=== PATIENT | male | born 1985 | race Caucasian/White ===

== ENCOUNTER 2020-01-20 06:35 | Emergency (ER) | payer OTHER, SELFPAY ==
[2020-01-20 06:41] VITALS: BP 119/78; PULSE 106; RESP 18; TEMP 35.7; O2SAT 99; BMI 27.2
--- NOTE | 2020-01-20 06:58 | ECG_ITS ---
Test Reason : ETOH Blood Pressure : / mmHG Vent. Rate : 081 BPM Atrial Rate : 081 BPM P-R Int : 146 ms QRS Dur : 100 ms QT Int : 404 ms P-R-T Axes : 056 046 025 degrees QTc Int : 469 ms Normal sinus rhythm Normal ECG When compared with ECG of 06-AUG-2019 06:13, T wave amplitude has decreased in Lateral leads Referred By: Sarah Haywood Electronically Signed By:GABY GUTIERREZ
--- NOTE | 2020-01-20 06:59 | ED_ITS ---
HPI - Alcohol General Chief Complaint: ETOH/Substance Use Stated Complaint: vomiting Time Seen by Provider: 01/20/20 06:57 Source: patient Mode of arrival: ambulatory Limitations: other (vague historian, somewhat difficult to interview ) History of Present Illness HPI narrative: chronic ETOH, drank heavily last drink 40 minutes ago reports he has had palpitations and vomiting for 6 hours, went to detox 1 month ago not sure he wants to go back complaint: alcohol intoxication Last drink: Just prior to admission Chronic alcohol use: Yes Previous visits for alcohol intoxication: Yes Recent trauma: No Associated symptoms: nausea and vomiting Treatments prior to arrival: none Related Data Previous Rx's Medication Instructions Recorded chlordiazepoxide HCl 25 mg PO Q8H PRN #14 cap 01/20/20 ondansetron 4 mg PO Q8H PRN #20 tab 01/20/20 Allergies Allergy/AdvReac Type Severity Reaction Status Date / Time erythromycin base Allergy Mild INFLAMMATIO Verified 01/20/20 07:26 [From ERYTHROCIN] N Certain Abx eye drops AdvReac Unknown Eye Uncoded 10/25/19 00:00 swelling/closing Review of Systems Review of Systems: Constitutional : No Fever, No Chills ENT/Mouth : No sore throat, No Rhinorrhea Eyes: No Eye Pain, No Swelling, No Redness Cardiovascular : No Chest Pain, No SOB, + heart racing Respiratory : No Cough, No Sputum Gastrointestinal : + Nausea, + Vomiting, No Diarrhea, No abdominal Pain Genitourinary : No Dysuria, No Hematuria Musculoskeletal : No joint pain, No Myalgias, No Joint Swelling Skin : No Skin Lesions, No rash Neuro : No Weakness, No Numbness Psych : No Anxiety, No Depression, No SI/HI/AH/VH Heme/Lymph: No Bruising, No Bleeding Endocrine : No Polyuria, No Polydipsia All other systems reviewed and are negative [facility] Past Medical History Medical History (Updated 01/20/20 @ 10:17 by Sarah Haywood DO) AA (alcohol abuse) Cirrhosis Pancreatitis Social History Social History (Updated 01/20/20 @ 06:59 by Sarah Haywood DO) Alcohol intake: current Alcohol intake frequency: 3 or more drinks per day Alcohol type: hard liquor Smoking Status: Current some day smoker Smoked in Last 30 Days: Yes Use of substances other than those prescribed or required for medical reasons: No Advance Directives: No Advance Directives Information Provided: No Physical Exam Vital Signs and I&O and Narrative: Vital Signs and I&O: Vital Signs Temp 96.2 F L 01/20/20 06:41 Pulse 101 H 01/20/20 09:21 Resp 20 01/20/20 09:21 BP 116/65 01/20/20 09:21 Pulse Ox 95 01/20/20 09:21 Intake & Output 01/19/20 01/20/20 01/20/20 18:59 06:59 18:59 Intake Total 1000 / 1000 Balance 1000 / 1000 Weight 86.183 kg Intake: Intake, IV Amoun t 1000 / 1000 0.9 % Sodium C hloride 1,000 ml 1000 / 1000 @ 999 mls/hr I VCONT .Q1H1M HUY Rx#:[id number] Body Mass Index 27.2 Appearance: Alert. Oriented X3. No acute distress. Flat affect Eyes: Pupils equal, round and reactive to light. ENT: Pharynx dry MM Neck: Normal inspection. Neck supple. CVS: tachycardic regular Pulses normal. Respiratory: No respiratory distress. Breath sounds normal. Abdomen: Soft and nontender. Skin: Skin warm and dry. Normal skin color. Normal skin turgor. Extremities: No lower extremity edema. No lower extremity edema. Neuro: Oriented X 3. No motor deficit. No sensory deficit. Course Reevaluation(s) Reevaluation #1: call to [facility] the patient states he will only go there for detox otherwise refuses, no answer when I called will ask SWAT for help Reevaluation #2: care team involved will follow up with patient he is able to tolerate PO steady gait, clinically sober, plan is to follow up rehab at home MDM - Alcohol MDM Narrative Medical decision making narrative: patient here with hx of heavy ETOH abuse here c/o palpitations n/v and unsure he wants detox, benign exam will need labs, IVF, reglan benadryl, IV pepcid - dispo per results and workup Lab Data Result diagrams: 01/20/20 07:07 01/20/20 07:07 Labs: Lab Results 01/20/20 01/20/20 01/20/20 Range/Units 07:07 07:07 07:07 WBC 5.6 (4.8-10.8) X10*3/uL RBC 4.40 L (4.60-5.80) X10*6/uL Hgb 14.9 (14.0-18.0) g/dl Hct 43.6 (42-52) % MCV 99.1 H (80-98) fL MCH 33.9 H (27.0-33.0) pg MCHC 34.2 (31.0-36.0) g/dl RDW 13.4 (11.0-16.0) % Plt Count 245 (160-400) X10*3/uL MPV 8.7 L (9.4-12.4) fL Immature Gran % (Auto) 0.2 (0.0-0.4) % Neut % (Auto) 57.0 (45-73) % Lymph % (Auto) 36.3 (20-40) % Perkins % (Auto) 4.6 (2-11) % Eos % (Auto) 0.5 (0-4) % Baso % (Auto) 1.4 (0-2) % Neut # (Auto) 3.2 (2.0-8.3) X10*3/uL Lymph # (Auto) 2.1 (1.2-4.9) X10*3/uL Perkins # (Auto) 0.3 (0.1-1.2) X10*3/uL Eos # (Auto) 0.0 (0.0-0.4) X10*3/uL Baso # (Auto) 0.1 (0.0-0.2) X10*3/uL Abs Immat Gran (auto) 0.01 (0.00-0.03) X10*3/uL Absolute Nucleated RBC 0.000 (0.0-0.012) X10*3/uL Nucleated RBC % (auto) 0.0 (0.0-0.2) /100WBC Hold Blue Top SEE NOTE Sodium 141 (135-145) mmol/L Potassium 3.5 (3.3-5.1) mmol/l Chloride 93 L (96-108) mmol/L Carbon Dioxide 20 L (22-29) mmol/L Anion Gap 32 H (12-20) BUN 13 (9-16) mg/dL Creatinine 0.91 (0.5-1.4) mg/dL Estim Creat Clear Calc 115.8 Estimated GFR > 60 Random Glucose 71 (60-115) mg/dL Calcium 10.1 (8.4-10.2) mg/dL Magnesium 1.7 (1.6-2.6) mg/dL Total Bilirubin 0.8 (0.0-1.0) mg/dL Direct Bilirubin 0.5 (0.0-0.5) mg/dL AST 154 H (5-37) U/L ALT 78 H (0-40) U/L Alkaline Phosphatase 83 (39-117) U/L Total Protein 8.6 H (6.5-8.0) g/dL Albumin 5.0 (3.5-5.0) g/dL Lipase 74 (8-78) U/L Ethyl Alcohol mg/dL 01/20/20 Range/Units 07:11 WBC (4.8-10.8) X10*3/uL RBC (4.60-5.80) X10*6/uL Hgb (14.0-18.0) g/dl Hct (42-52) % MCV (80-98) fL MCH (27.0-33.0) pg MCHC (31.0-36.0) g/dl RDW (11.0-16.0) % Plt Count (160-400) X10*3/uL MPV (9.4-12.4) fL Immature Gran % (Auto) (0.0-0.4) % Neut % (Auto) (45-73) % Lymph % (Auto) (20-40) % Perkins % (Auto) (2-11) % Eos % (Auto) (0-4) % Baso % (Auto) (0-2) % Neut # (Auto) (2.0-8.3) X10*3/uL Lymph # (Auto) (1.2-4.9) X10*3/uL Perkins # (Auto) (0.1-1.2) X10*3/uL Eos # (Auto) (0.0-0.4) X10*3/uL Baso # (Auto) (0.0-0.2) X10*3/uL Abs Immat Gran (auto) (0.00-0.03) X10*3/uL Absolute Nucleated RBC (0.0-0.012) X10*3/uL Nucleated RBC % (auto) (0.0-0.2) /100WBC Hold Blue Top Sodium (135-145) mmol/L Potassium (3.3-5.1) mmol/l Chloride (96-108) mmol/L Carbon Dioxide (22-29) mmol/L Anion Gap (12-20) BUN (9-16) mg/dL Creatinine (0.5-1.4) mg/dL Estim Creat Clear Calc Estimated GFR Random Glucose (60-115) mg/dL Calcium (8.4-10.2) mg/dL Magnesium (1.6-2.6) mg/dL Total Bilirubin (0.0-1.0) mg/dL Direct Bilirubin (0.0-0.5) mg/dL AST (5-37) U/L ALT (0-40) U/L Alkaline Phosphatase (39-117) U/L Total Protein (6.5-8.0) g/dL Albumin (3.5-5.0) g/dL Lipase (8-78) U/L Ethyl Alcohol 353 H* mg/dL ECG Data ECG interpretation date: 01/20/20 ECG interpretation time: 07:51 Interpretation: Rate: 81 Rhythm: NSR [place]: normal Normal P waves. Normal DUANE. Normal QRS complex. ST T wave : normal qTC:normal no acute ischemia The study has been interpreted contemporaneously by me. . Discharge Plan Discharge Clinical Impression: Alcoholic intoxication Patient Disposition: Home, Self-Care Instructions: Abuse of Alcohol (ED) Additional Instructions: please continue to follow up with detox centers Prescriptions: New ondansetron 4 mg tablet,disintegrating 4 mg PO Q8H PRN (Reason: nausea and vomiting) Qty: 20 RF: 0 chlordiazepoxide HCl 25 mg capsule 25 mg PO Q8H PRN (Reason: alcohol withdrawal) Qty: 14 RF: 0 Referrals: [facility] [Outside] - 1 day
[2020-01-20 07:16] VITALS: PULSE 100
[2020-01-20 07:17] LABS: MANUAL DIFF FLAG NO
[2020-01-20 07:20] LABS: Basophils Absolute Auto 0.1 X10*3/uL (0.0-0.2); Basophils Percent Auto 1.4 % (0-2); Eosinophils Percent Auto 0.5 % (0-4); Hematocrit 43.6 % (42-52); Hemoglobin 14.9 g/dl (14.0-18.0); Imm Gran Abs Auto 0.01 X10*3/uL (0.00-0.03); Imm Gran Pct Auto 0.2 % (0.0-0.4); Lymphocytes Absolute Auto 2.1 X10*3/uL (1.2-4.9); Lymphocytes Percent Auto 36.3 % (20-40); Mean Corpuscular HGB Conc 34.2 g/dl (31.0-36.0); Mean Corpuscular Hemoglobin 33.9 pg (27.0-33.0); Mean Corpuscular Volume 99.1 fL (80-98); Mean Platelet Volume 8.7 fL (9.4-12.4); Monocytes Absolute Auto 0.3 X10*3/uL (0.1-1.2); Monocytes Percent Auto 4.6 % (2-11); Neutrophils Absolute Auto 3.2 X10*3/uL (2.0-8.3); Platelet Count 245 X10*3/uL (160-400); Red Cell Distribution Width 13.4 % (11.0-16.0); White Blood Count 5.6 X10*3/uL (4.8-10.8)
[2020-01-20] MEDS: Famotidine/PF 20 MG/2 ML VIAL IVPUSH (07:32)
[2020-01-20] MEDS: Metoclopramide HCl 10 MG/2 ML VIAL IVPUSH (07:32)
[2020-01-20] MEDS: diphenhydrAMINE HCL 50 MG/ML VIAL 25 MG IVPUSH (07:32)
[2020-01-20] MEDS: 0.9 % Sodium Chloride 1,000 ML 999 ML IVCONT (07:33)
[2020-01-20 07:56] LABS: Alanine Aminotransferase 78 U/L (0-40); Alkaline Phosphatase 83 U/L (39-117); Bilirubin Direct 0.5 mg/dL (0.0-0.5); Bilirubin Total 0.8 mg/dL (0.0-1.0); Blood Urea Nitrogen 13 mg/dL (9-16); Calcium 10.1 mg/dL (8.4-10.2); Creatinine Clr Calc Pharmacy 115.8; Estimated Glomerular Filt Rate > 60; Glucose Random 71 mg/dL (60-115); Lipase 74 U/L (8-78); Magnesium 1.7 mg/dL (1.6-2.6); Total Protein 8.6 g/dL (6.5-8.0)
[2020-01-20 08:05] LABS: Ethanol 353 mg/dL
[2020-01-20 08:12] LABS: Anion Gap 32 (12-20); Aspartate Amino Transferase 154 U/L (5-37); Carbon Dioxide 20 mmol/L (22-29); Chloride 93 mmol/L (96-108); Potassium 3.5 mmol/l (3.3-5.1); Sodium 141 mmol/L (135-145)
[2020-01-20 09:21] VITALS: BP 116/65; PULSE 101; RESP 20; O2SAT 95
--- NOTE | 2020-01-20 09:24 | PC.NURSE ---
Pt interested in detox if he can get into Prov. Awaiting Care Team consult.
[2020-01-20] MEDS: Acetaminophen 325 MG TABLET 650 MG PO (09:31)
[2020-01-20] MEDS: chlordiazePOXIDE HCl 25 MG CAPSULE 50 MG PO (09:41)
--- NOTE | 2020-01-20 09:54 | PC.NURSE ---
Care Team here to see pt.
--- NOTE | 2020-01-20 10:06 | MHC.CARE ---
CARE Team met with Pt to discuss detox placement. Pt has a preference for [facility]. Per [facility] no current beds. [facility] reports there waiting room is full. Pt made aware that there are no current beds available locally. Pt reports willing to go to [facility].
--- NOTE | 2020-01-20 10:46 | MHC.CARE ---
CARE Team and Pt discussed following up with detox placements at home as t/w could not secure a placment . Pt aware he was referred to [facility] and [facility] at this time and declines being referred farther away. Pt provided contact numbers and verbalized understanding. Pt provided information for [facility] and gave t/w verbal permission to provide [facility] to follow up with him post discharge.
== END 2020-01-20 11:24 | disposition home or self-care (01) ==
PROVIDERS: Emergency Provider Emergency Medicine; PCP Nurse Practitioner Family
DX: F10.120 Alcohol abuse with intoxication, uncomplicated (principal); Y90.8 Blood alcohol level of 240 mg/100 ml or more; F17.200 Nicotine dependence, unspecified, uncomplicated
CPT/HCPCS: 36415; 80048; 80076; 80320; 83690; 83735; 85025; 93005; 93010; 96361; 96374; 96375; 99284; J1200; J2765

== ENCOUNTER 2020-02-02 20:20 | Emergency (ER) | payer OTHER, SELFPAY ==
[2020-02-02 21:01] VITALS: BP 159/92; PULSE 101; RESP 16; TEMP 36.1; O2SAT 100; BMI 27.2
--- NOTE | 2020-02-02 22:40 | XR_ITS ---
EXAMINATION: XR CHEST CLINICAL INFORMATION: Shortness of breath COMPARISON: Chest x-ray 03/19/2019 TECHNIQUE: Frontal view of the chest was obtained. FINDINGS: No significant abnormality is noted involving the heart, lungs, mediastinum, bony thorax or soft tissues. IMPRESSION: Unremarkable examination.
--- NOTE | 2020-02-02 22:45 | ED_ITS ---
HPI - Alcohol General Chief Complaint: ETOH/Substance Use <JASON Morales - Last Filed: 02/03/20 00:51> Stated Complaint: WITHDRAWALS <JASON Morales - Last Filed: 02/03/20 00:51> Time Seen by Provider: 02/02/20 22:31 <JASON Morales Last Filed: 02/03/20 00:51> Source: patient <JASON Morales - Last Filed: 02/03/20 00:51> Mode of arrival: ambulatory <JASON Morales - Last Filed: 02/03/20 00:51> Limitations: other ( under the influence) <JASON Morales Last Filed: 02/03/20 00:51> History of Present Illness HPI narrative: 34-year-old male with a past medical history of cirrhosis, pancreatitis, alcohol abuse presenting to ED requesting detox from alcohol. Reports he is in alcohol withdrawal. Admits to drinking a Liter of liquor daily, last drink a few hours [employer]. Admits to taking Librium and Clonidine [employer]. Reports increased anxiety /shakiness, abdominal pain, nausea/ vomiting. Also reports associated SOB with anxiety. Denies CP, diarrhea, fever, chills, cough, exposure to COVID- 19 <JASON Morales - Last Filed: 02/03/20 00:51> MD complaint: alcohol intoxication and alcohol withdrawal <JASON Morales Last Filed: 02/03/20 00:51> Related Data Home Medications: Previous Rx's Medication Instructions Recorded chlordiazepoxide HCl 25 mg PO Q8H PRN #14 cap 01/20/20 ondansetron 4 mg PO Q8H PRN #20 tab 01/20/20 lorazepam [Ativan] 0.5 mg PO TID PRN #10 tab 02/03/20 ondansetron HCl [Zofran] 4 mg PO Q8H PRN #10 tab 02/03/20 <JASON Morales Last Filed: 02/03/20 00:51> Allergies/Adverse Reactions: Allergies Allergy/AdvReac Type Severity Reaction Status Date / Time erythromycin base Allergy Mild INFLAMMATIO Verified 01/20/20 07:26 [From ERYTHROCIN] N Certain Abx eye drops AdvReac Unknown Eye Uncoded 10/25/19 00:00 swelling/closing <JASON Morales - Last Filed: 02/03/20 00:51> Review of Systems Review of Systems: Constitutional: No Weight loss, No Fever, No Chills, No Night Sweats, No Fatigue, No Malaise Cardiovascular: No Chest Pain, + SOB, No Dyspnea on Exertion Respiratory: No Cough Gastrointestinal: + Nausea, + Vomiting, No Diarrhea, No Constipation, + Abdominal pain Skin: No Skin Lesions, No rash Neuro: No Weakness, No Numbness, No Paresthesias Psych: + Anxiety/Panic, No Depression, No SI/HI/AH/VH, +Social Issues <JASON Morales - Last Filed: 02/03/20 00:51> Yes all other systems are reviewed and are negative <JASON Morales - Last Filed: 02/03/20 00:51> PMFSH Past Medical History Attestation statement: The following information was validated with the patient. <JASON Morales - Last Filed: 02/03/20 00:51> Medical History: Medical History (Updated 02/03/20 @ 11:00 by Pio Escobar NP) AA (alcohol abuse) Cirrhosis Pancreatitis <JASON Morales - Last Filed: 02/03/20 00:51> Social History Social History: Social History (Updated 01/20/20 @ 06:59 by Sarah Haywood DO) Alcohol intake: current Alcohol intake frequency: 3 or more drinks per day Alcohol type: hard liquor Smoking Status: Unknown if ever smoked Use of substances other than those prescribed or required for medical reasons: Unknown Advance Directives: No Advance Directives Information Provided: Yes <JASON Morales - Last Filed: 02/03/20 00:51> Physical Exam Vital Signs: Vital Signs: Vital Signs Temp Pulse Resp BP Pulse Ox 02/03/20 10:00 22 H 02/03/20 08:00 97.3 F 74 134/72 99 02/03/20 06:00 97.9 F 75 16 109/66 100 02/03/20 04:00 88 20 100 02/03/20 02:00 86 16 99 02/03/20 00:44 97.5 F 79 97 02/02/20 23:41 98.2 F 88 18 146/92 H 98 Body Mass Index 27.2 <JASON Morales - Last Filed: 02/03/20 00:51> Vital Signs: Vital Signs Temp Pulse Resp BP Pulse Ox 02/03/20 10:00 22 H 02/03/20 08:00 97.3 F 74 134/72 99 02/03/20 06:00 97.9 F 75 16 109/66 100 02/03/20 04:00 88 20 100 02/03/20 02:00 86 16 99 02/03/20 00:44 97.5 F 79 97 02/02/20 23:41 98.2 F 88 18 146/92 H 98 Body Mass Index 27.2 <Fernando Rodriges MD - Last Filed: 02/03/20 10:22> Vital Signs: Vital Signs Temp Pulse Resp BP Pulse Ox 02/03/20 10:00 22 H 02/03/20 08:00 97.3 F 74 134/72 99 02/03/20 06:00 97.9 F 75 16 109/66 100 02/03/20 04:00 88 20 100 02/03/20 02:00 86 16 99 02/03/20 00:44 97.5 F 79 97 02/02/20 23:41 98.2 F 88 18 146/92 H 98 Body Mass Index 27.2 <Pio Escobar NP - Last Filed: 02/03/20 10:57> Vital Signs: Vital Signs Temp Pulse Resp BP Pulse Ox 02/03/20 10:00 22 H 02/03/20 08:00 97.3 F 74 134/72 99 02/03/20 06:00 97.9 F 75 16 109/66 100 02/03/20 04:00 88 20 100 02/03/20 02:00 86 16 99 02/03/20 00:44 97.5 F 79 97 02/02/20 23:41 98.2 F 88 18 146/92 H 98 Body Mass Index 27.2 <Deja Covington MD - Last Filed: 02/03/20 21:01> Const: Other: intoxicated/under the influence <JASON Morales - Last Filed: 02/03/20 00:51> General: cooperative, alert, awake and intoxicated appearing <JASON Morales - Last Filed: 02/03/20 00:51> HENMT: Other: atraumatic <Dilcia Foster SD - Last Filed: 02/03/20 00:51> Head: Yes normal to inspection <Dilcia Foster SD - Last Filed: 02/03/20 00:51> Ears: hearing grossly normal bilaterally <Dilcia Foster SD - Last Filed: 02/03/20 00:51> General nose exam: Normal external nose present <Dilcia Foster SD - Last Filed: 02/03/20 00:51> Face and sinus: Yes normal facial exam <Dilcia Foster SD - Last Filed: 02/02 00:51> Eyes: General: appearance normal, both eyes and all related structures <Dilcia Foster SD - Last Filed: 02/03/20 00:51> Pupils: Equal, round and reactive pupils present <Dilcia Foster SD - Last Filed: 02/03/20 00:51> EOM: EOMs intact bilaterally <Dilcia Foster SD - Last Filed: 02/03/20 00:51> Neck: Neck: Yes normal visual inspection <Dilcia Foster SD - Last Filed: 02/03/20 00:51> Resp: Effort & Inspection: normal respiratory effort <Dilcia Foster SD - Last Filed: 02/03/20 00:51> Auscultation: clear to auscultation bilaterally <Dilcia Foster SD - Last Filed: 02/03/20 00:51> Cardio: Rate: regular rate <Dilcia Foster [facility] Last Filed: 02/03/20 00:51> Heart sounds: S1 normal heart sound present and S2 normal heart sound present <Dilcia Foster [facility] Last Filed: 02/03/20 00:51> GI: Inspection: Yes normal to inspection <Dilcia Foster SD - Last Filed: 02/03/20 00:51> Palpation (GI): Soft to palpation, Tenderness to palpation present (GI) (diffusely), no guarding and not rigid <Dilcia Foster SD - Last Filed: 02/03/20 00:51> Neuro: Cranial nerves: Yes Equal, round and reactive pupils present <Dilcia Foster SD - Last Filed: 02/03/20 00:51> Gait exam (Neuro): Normal gait present <JASON Morales - Last Filed: 02/03/20 00:51> Extrem: General: Yes normal to inspection <JASON Morales - Last Filed: 02/03/20 00:51> Course Course Course Narrative: 0044-- labs notable for anion gap of 26 > likely from EtOH/dehydration > IVF ordered - AST/ALT elevated chronically, lipase elevated 133 (chronically elevated), ethanol 404 - patient is ambulating around the ED with steady, will continue to observe /reassess <JASON Morales - Last Filed: 02/03/20 00:51> MDM - Alcohol MDM Narrative Medical decision making narrative: 34-year-old male with a past medical history of cirrhosis, pancreatitis, alcohol abuse presenting to ED requesting detox from alcohol. Reports increased anxiety /shakiness, abdominal pain, nausea/ vomiting. On exam VSS, NAD, nontoxic appearing, intoxicated, atraumatic, ambulating with steady gait. No signs of alcohol withdrawal at this time, patient intoxicated. Rule out electrolyte abnormalities. Low concern for intra-abdominal process plan: Labs, UA, CXR, symptomatic treatment /reassess <JASON Morales - Last Filed: 02/03/20 00:51> Lab Data Result diagrams: : 02/02/20 23:02 02/02/20 23:02 <JASON Morales - Last Filed: 02/03/20 00:51> Labs: Lab Results 02/02/20 02/02/20 02/02/20 Range/Units 23:02 23:02 23:02 WBC 3.6 L (4.8-10.8) X10*3/uL RBC 4.12 L (4.60-5.80) X10*6/uL Hgb 14.3 (14.0-18.0) g/dl Hct 39.4 L (42-52) % MCV 95.6 (80-98) fL MCH 34.7 H (27.0-33.0) pg MCHC 36.3 H (31.0-36.0) g/dl RDW 12.8 (11.0-16.0) % Plt Count 119 L D (160-400) X10*3/uL MPV 8.7 L (9.4-12.4) fL Immature Gran % (Auto) 0.3 (0.0-0.4) % Neut % (Auto) 51.4 (45-73) % Lymph % (Auto) 38.5 (20-40) % Mathews % (Auto) 8.1 (2-11) % Eos % (Auto) 0.3 (0-4) % Baso % (Auto) 1.4 (0-2) % Lymph # (Auto) 1.4 (1.2-4.9) X10*3/uL Mathews # (Auto) 0.3 (0.1-1.2) X10*3/uL Eos # (Auto) 0.0 (0.0-0.4) X10*3/uL Baso # (Auto) 0.1 (0.0-0.2) X10*3/uL Abs Immat Gran (auto) 0.01 (0.00-0.03) X10*3/uL Absolute Neuts (auto) 1.8 L (2.0-8.3) X10*3/uL Absolute Nucleated RBC 0.000 (0.0-0.012) X10*3/uL Nucleated RBC % (auto) 0.0 (0.0-0.2) /100WBC Sodium 140 (135-145) mmol/L Potassium 3.9 (3.3-5.1) mmol/l Chloride 89 L (96-108) mmol/L Carbon Dioxide 29 (22-29) mmol/L Anion Gap 26 H (12-20) BUN 13 (9-16) mg/dL Creatinine 0.82 (0.5-1.4) mg/dL Estim Creat Clear Calc 128.5 Estimated GFR > 60 Random Glucose 71 (60-115) mg/dL Calcium 10.2 (8.4-10.2) mg/dL Magnesium 1.7 (1.6-2.6) mg/dL Total Bilirubin 0.8 (0.0-1.0) mg/dL Direct Bilirubin 0.4 (0.0-0.5) mg/dL AST 212 H (5-37) U/L ALT 140 H (0-40) U/L Alkaline Phosphatase 99 (39-117) U/L Total Protein 8.5 H (6.5-8.0) g/dL Albumin 4.8 (3.5-5.0) g/dL Lipase 133 H (8-78) U/L Ethyl Alcohol 404 H* mg/dL <JASON Morales - Last Filed: 02/03/20 00:51> Lab Results 02/02/20 02/02/20 02/02/20 Range/Units 23:02 23:02 23:02 WBC 3.6 L (4.8-10.8) X10*3/uL RBC 4.12 L (4.60-5.80) X10*6/uL Hgb 14.3 (14.0-18.0) g/dl Hct 39.4 L (42-52) % MCV 95.6 (80-98) fL MCH 34.7 H (27.0-33.0) pg MCHC 36.3 H (31.0-36.0) g/dl RDW 12.8 (11.0-16.0) % Plt Count 119 L D (160-400) X10*3/uL MPV 8.7 L (9.4-12.4) fL Immature Gran % (Auto) 0.3 (0.0-0.4) % Neut % (Auto) 51.4 (45-73) % Lymph % (Auto) 38.5 (20-40) % Mathews % (Auto) 8.1 (2-11) % Eos % (Auto) 0.3 (0-4) % Baso % (Auto) 1.4 (0-2) % Lymph # (Auto) 1.4 (1.2-4.9) X10*3/uL Mathews # (Auto) 0.3 (0.1-1.2) X10*3/uL Eos # (Auto) 0.0 (0.0-0.4) X10*3/uL Baso # (Auto) 0.1 (0.0-0.2) X10*3/uL Abs Immat Gran (auto) 0.01 (0.00-0.03) X10*3/uL Absolute Neuts (auto) 1.8 L (2.0-8.3) X10*3/uL Absolute Nucleated RBC 0.000 (0.0-0.012) X10*3/uL Nucleated RBC % (auto) 0.0 (0.0-0.2) /100WBC Sodium 140 (135-145) mmol/L Potassium 3.9 (3.3-5.1) mmol/l Chloride 89 L (96-108) mmol/L Carbon Dioxide 29 (22-29) mmol/L Anion Gap 26 H (12-20) BUN 13 (9-16) mg/dL Creatinine 0.82 (0.5-1.4) mg/dL Estim Creat Clear Calc 128.5 Estimated GFR > 60 Random Glucose 71 (60-115) mg/dL Calcium 10.2 (8.4-10.2) mg/dL Magnesium 1.7 (1.6-2.6) mg/dL Total Bilirubin 0.8 (0.0-1.0) mg/dL Direct Bilirubin 0.4 (0.0-0.5) mg/dL AST 212 H (5-37) U/L ALT 140 H (0-40) U/L Alkaline Phosphatase 99 (39-117) U/L Total Protein 8.5 H (6.5-8.0) g/dL Albumin 4.8 (3.5-5.0) g/dL Lipase 133 H (8-78) U/L Ethyl Alcohol 404 H* mg/dL <Fernando Rodriges MD - Last Filed: 02/03/20 10:22> Lab Results 02/02/20 02/02/20 02/02/20 Range/Units 23:02 23:02 23:02 WBC 3.6 L (4.8-10.8) X10*3/uL RBC 4.12 L (4.60-5.80) X10*6/uL Hgb 14.3 (14.0-18.0) g/dl Hct 39.4 L (42-52) % MCV 95.6 (80-98) fL MCH 34.7 H (27.0-33.0) pg MCHC 36.3 H (31.0-36.0) g/dl RDW 12.8 (11.0-16.0) % Plt Count 119 L D (160-400) X10*3/uL MPV 8.7 L (9.4-12.4) fL Immature Gran % (Auto) 0.3 (0.0-0.4) % Neut % (Auto) 51.4 (45-73) % Lymph % (Auto) 38.5 (20-40) % Mathews % (Auto) 8.1 (2-11) % Eos % (Auto) 0.3 (0-4) % Baso % (Auto) 1.4 (0-2) % Lymph # (Auto) 1.4 (1.2-4.9) X10*3/uL Mathews # (Auto) 0.3 (0.1-1.2) X10*3/uL Eos # (Auto) 0.0 (0.0-0.4) X10*3/uL Baso # (Auto) 0.1 (0.0-0.2) X10*3/uL Abs Immat Gran (auto) 0.01 (0.00-0.03) X10*3/uL Absolute Neuts (auto) 1.8 L (2.0-8.3) X10*3/uL Absolute Nucleated RBC 0.000 (0.0-0.012) X10*3/uL Nucleated RBC % (auto) 0.0 (0.0-0.2) /100WBC Sodium 140 (135-145) mmol/L Potassium 3.9 (3.3-5.1) mmol/l Chloride 89 L (96-108) mmol/L Carbon Dioxide 29 (22-29) mmol/L Anion Gap 26 H (12-20) BUN 13 (9-16) mg/dL Creatinine 0.82 (0.5-1.4) mg/dL Estim Creat Clear Calc 128.5 Estimated GFR > 60 Random Glucose 71 (60-115) mg/dL Calcium 10.2 (8.4-10.2) mg/dL Magnesium 1.7 (1.6-2.6) mg/dL Total Bilirubin 0.8 (0.0-1.0) mg/dL Direct Bilirubin 0.4 (0.0-0.5) mg/dL AST 212 H (5-37) U/L ALT 140 H (0-40) U/L Alkaline Phosphatase 99 (39-117) U/L Total Protein 8.5 H (6.5-8.0) g/dL Albumin 4.8 (3.5-5.0) g/dL Lipase 133 H (8-78) U/L Ethyl Alcohol 404 H* mg/dL <Pio Escobar NP - Last Filed: 02/03/20 10:57> Lab Results 02/02/20 02/02/20 02/02/20 Range/Units 23:02 23:02 23:02 WBC 3.6 L (4.8-10.8) X10*3/uL RBC 4.12 L (4.60-5.80) X10*6/uL Hgb 14.3 (14.0-18.0) g/dl Hct 39.4 L (42-52) % MCV 95.6 (80-98) fL MCH 34.7 H (27.0-33.0) pg MCHC 36.3 H (31.0-36.0) g/dl RDW 12.8 (11.0-16.0) % Plt Count 119 L D (160-400) X10*3/uL MPV 8.7 L (9.4-12.4) fL Immature Gran % (Auto) 0.3 (0.0-0.4) % Neut % (Auto) 51.4 (45-73) % Lymph % (Auto) 38.5 (20-40) % Mathews % (Auto) 8.1 (2-11) % Eos % (Auto) 0.3 (0-4) % Baso % (Auto) 1.4 (0-2) % Lymph # (Auto) 1.4 (1.2-4.9) X10*3/uL Mathews # (Auto) 0.3 (0.1-1.2) X10*3/uL Eos # (Auto) 0.0 (0.0-0.4) X10*3/uL Baso # (Auto) 0.1 (0.0-0.2) X10*3/uL Abs Immat Gran (auto) 0.01 (0.00-0.03) X10*3/uL Absolute Neuts (auto) 1.8 L (2.0-8.3) X10*3/uL Absolute Nucleated RBC 0.000 (0.0-0.012) X10*3/uL Nucleated RBC % (auto) 0.0 (0.0-0.2) /100WBC Sodium 140 (135-145) mmol/L Potassium 3.9 (3.3-5.1) mmol/l Chloride 89 L (96-108) mmol/L Carbon Dioxide 29 (22-29) mmol/L Anion Gap 26 H (12-20) BUN 13 (9-16) mg/dL Creatinine 0.82 (0.5-1.4) mg/dL Estim Creat Clear Calc 128.5 Estimated GFR > 60 Random Glucose 71 (60-115) mg/dL Calcium 10.2 (8.4-10.2) mg/dL Magnesium 1.7 (1.6-2.6) mg/dL Total Bilirubin 0.8 (0.0-1.0) mg/dL Direct Bilirubin 0.4 (0.0-0.5) mg/dL AST 212 H (5-37) U/L ALT 140 H (0-40) U/L Alkaline Phosphatase 99 (39-117) U/L Total Protein 8.5 H (6.5-8.0) g/dL Albumin 4.8 (3.5-5.0) g/dL Lipase 133 H (8-78) U/L Ethyl Alcohol 404 H* mg/dL <Deja Covington MD - Last Filed: 02/03/20 21:01> Discharge Plan Discharge Clinical Impression: Alcoholic ketoacidosis Alcoholic intoxication Qualifiers: Complication of substance-induced condition: with unspecified complication Qualified Code(s): F10.929 - Alcohol use, unspecified with intoxication, unspecified ALC (alcoholic liver cirrhosis) Qualifiers: Ascites presence: without ascites Qualified Code(s): K70.30 - Alcoholic cirrhosis of liver without ascites <JASON Morales - Last Filed: 02/03/20 00:51> Patient Disposition: Home, Self-Care <JASON Morales - Last Filed: 02/03/20 00:51> Instructions: Cirrhosis (ED), Abuse of Alcohol (ED) <JASON Morales - Last Filed: 02/03/20 00:51> Additional Instructions: please go directly to detox Home care as instructed Return if any concerns or worsening symptoms Thank you <JASON Morales - Last Filed: 02/03/20 00:51> Prescriptions: New ondansetron HCl [Zofran] 4 mg tablet 4 mg PO Q8H PRN (Reason: nausea and vomiting) Qty: 10 RF: 0 lorazepam [Ativan] 0.5 mg tablet 0.5 mg PO TID PRN (Reason: alcohol withdrawal) Qty: 10 RF: 0 No Action ondansetron 4 mg tablet,disintegrating 4 mg PO Q8H PRN (Reason: nausea and vomiting) Qty: 20 RF: 0 chlordiazepoxide HCl 25 mg capsule 25 mg PO Q8H PRN (Reason: alcohol withdrawal) Qty: 14 RF: 0 <JASON Morales - Last Filed: 02/03/20 00:51> Referrals: Willie Pollard [facility] [Primary Care Provider] - 2 days <JASON Morales - Last Filed: 02/03/20 00:51> Interventions: ED Discharge Assessment Last Done: 02/03/20 11:02 <JASON Morales - Last Filed: 02/03/20 00:51> Discharge Date/Time: 02/03/20 11:10 <JASON Morales - Last Filed: 02/03/20 00:51>
[2020-02-02 23:13] LABS: MANUAL DIFF FLAG NO
[2020-02-02 23:14] LABS: Basophils Absolute Auto 0.1 X10*3/uL (0.0-0.2); Basophils Percent Auto 1.4 % (0-2); Eosinophils Percent Auto 0.3 % (0-4); Hematocrit 39.4 % (42-52); Hemoglobin 14.3 g/dl (14.0-18.0); Imm Gran Abs Auto 0.01 X10*3/uL (0.00-0.03); Imm Gran Pct Auto 0.3 % (0.0-0.4); Lymphocytes Absolute Auto 1.4 X10*3/uL (1.2-4.9); Lymphocytes Percent Auto 38.5 % (20-40); Mean Corpuscular HGB Conc 36.3 g/dl (31.0-36.0); Mean Corpuscular Hemoglobin 34.7 pg (27.0-33.0); Mean Corpuscular Volume 95.6 fL (80-98); Mean Platelet Volume 8.7 fL (9.4-12.4); Monocytes Absolute Auto 0.3 X10*3/uL (0.1-1.2); Monocytes Percent Auto 8.1 % (2-11); Neutrophils Absolute Auto 1.8 X10*3/uL (2.0-8.3); Neutrophils Percent Auto 51.4 % (45-73); Platelet Count 119 X10*3/uL (160-400); Red Blood Count 4.12 X10*6/uL (4.60-5.80); Red Cell Distribution Width 12.8 % (11.0-16.0); White Blood Count 3.6 X10*3/uL (4.8-10.8)
[2020-02-02 23:41] VITALS: BP 146/92; PULSE 88; RESP 18; TEMP 36.8; O2SAT 98
[2020-02-02 23:44] LABS: Ethanol 404 mg/dL
[2020-02-02 23:51] LABS: Alanine Aminotransferase 140 U/L (0-40); Albumin Level 4.8 g/dL (3.5-5.0); Alkaline Phosphatase 99 U/L (39-117); Anion Gap 26 (12-20); Aspartate Amino Transferase 212 U/L (5-37); Bilirubin Direct 0.4 mg/dL (0.0-0.5); Bilirubin Total 0.8 mg/dL (0.0-1.0); Blood Urea Nitrogen 13 mg/dL (9-16); Calcium 10.2 mg/dL (8.4-10.2); Carbon Dioxide 29 mmol/L (22-29); Chloride 89 mmol/L (96-108); Creatinine Clr Calc Pharmacy 128.5; Estimated Glomerular Filt Rate > 60; Glucose Random 71 mg/dL (60-115); Lipase 133 U/L (8-78); Magnesium 1.7 mg/dL (1.6-2.6); Potassium 3.9 mmol/l (3.3-5.1); Sodium 140 mmol/L (135-145); Total Protein 8.5 g/dL (6.5-8.0)
[2020-02-03 00:44] VITALS: PULSE 79; TEMP 36.4; O2SAT 97
[2020-02-03] MEDS: 0.9 % Sodium Chloride 1,000 ML 999 ML IVCONT ×2 (01:03)
[2020-02-03] MEDS: Famotidine/PF 20 MG/2 ML VIAL IVPUSH (01:03)
[2020-02-03] MEDS: Magnesium Hydrox/Alum Hydrox 30 ML ORAL.SUSP PO (01:03)
[2020-02-03 02:00] VITALS: PULSE 86; RESP 16; O2SAT 99
[2020-02-03 04:00] VITALS: PULSE 88; RESP 20; O2SAT 100
[2020-02-03 06:00] VITALS: BP 109/66; PULSE 75; RESP 16; TEMP 36.6; O2SAT 100
[2020-02-03] MEDS: Ibuprofen 600 MG TABLET PO (07:40)
[2020-02-03] MEDS: LORazepam 1 MG TABLET PO (07:57)
[2020-02-03 08:00] VITALS: BP 134/72; PULSE 74; TEMP 36.3; O2SAT 99
--- NOTE | 2020-02-03 08:01 | PC.NURSE ---
waiting on care team for detox, resting at this time.
--- NOTE | 2020-02-03 09:13 | PC.NURSE ---
pt seen by care team, given information and is ready for dc on there end, will update provider.
[2020-02-03 10:00] VITALS: RESP 22
--- NOTE | 2020-02-03 10:47 | PC.NURSE ---
waiting for provider to put in discharge, second request
--- NOTE | 2020-02-03 11:38 | MHC.CARE ---
CARE team was consulted to meet w pt for detox info. Pt was laying in adame bed when t/w met w pt. Pt stated he know how to get in and has been to all of them (detox) and graciously accepted the lists. Pt stated he was still here because my stomach really hurts and it never is like this pt was asking for further medical attention. T/w alerted pts nurse blanca.
== END 2020-02-03 11:10 | disposition home or self-care (01) ==
PROVIDERS: Physician Assistant; Emergency Provider Emergency Medicine; PCP Nurse Practitioner Family
DX: F10.129 Alcohol abuse with intoxication, unspecified (principal); K70.30 Alcoholic cirrhosis of liver without ascites; R06.02 Shortness of breath; Z71.51 Drug abuse counseling and surveillance of drug abuser; Y90.8 Blood alcohol level of 240 mg/100 ml or more
CPT/HCPCS: 36415; 71045; 80048; 80076; 80320; 83690; 83735; 85025; 96361; 96374; 96375; 99285

== ENCOUNTER 2020-02-19 08:03 | Outpatient (REF) | payer OTHER, SELFPAY ==
[2020-02-19 11:02] LABS: MANUAL DIFF FLAG NO
[2020-02-19 11:17] LABS: Basophils Absolute Auto 0.1 X10*3/uL (0.0-0.2); Basophils Percent Auto 1.2 % (0-2); Eosinophils Absolute Auto 0.1 X10*3/uL (0.0-0.4); Eosinophils Percent Auto 2.5 % (0-4); Hematocrit 36.5 % (42-52); Hemoglobin 12.3 g/dl (14.0-18.0); Imm Gran Abs Auto 0.05 X10*3/uL (0.00-0.03); Imm Gran Pct Auto 0.9 % (0.0-0.4); Lymphocytes Absolute Auto 1.5 X10*3/uL (1.2-4.9); Lymphocytes Percent Auto 26.4 % (20-40); Mean Corpuscular HGB Conc 33.7 g/dl (31.0-36.0); Mean Corpuscular Hemoglobin 34.5 pg (27.0-33.0); Mean Corpuscular Volume 102.2 fL (80-98); Mean Platelet Volume 10.1 fL (9.4-12.4); Monocytes Absolute Auto 0.9 X10*3/uL (0.1-1.2); Platelet Count 181 X10*3/uL (160-400); Red Blood Count 3.57 X10*6/uL (4.60-5.80); Red Cell Distribution Width 13.4 % (11.0-16.0); White Blood Count 5.7 X10*3/uL (4.8-10.8)
[2020-02-19 12:08] LABS: Albumin Level 4.5 g/dL (3.5-5.0); Alkaline Phosphatase 136 U/L (39-117); Anion Gap 14 (12-20); Bilirubin Total 0.4 mg/dL (0.0-1.0); Blood Urea Nitrogen 16 mg/dL (9-16); Carbon Dioxide 29 mmol/L (22-29); Chloride 97 mmol/L (96-108); Estimated Glomerular Filt Rate > 60; Glucose Fasting 93 mg/dL (60-99); Potassium 3.7 mmol/l (3.3-5.1); Sodium 136 mmol/L (135-145); Total Protein 7.9 g/dL (6.5-8.0)
[2020-02-19 12:21] LABS: Alanine Aminotransferase 187 U/L (0-40); Aspartate Amino Transferase 167 U/L (5-37); Lipase 147 U/L (8-78)
== END 2020-02-19 08:04 | disposition home or self-care (01) ==
LOC: HO.HMGCLDS 08:03
PROVIDERS: PCP Nurse Practitioner Family; Visit Provider Nurse Practitioner Family
DX: F10.10 Alcohol abuse, uncomplicated (principal)
CPT/HCPCS: 36415; 80053; 83690; 85025

== ENCOUNTER 2020-02-27 21:12 | Emergency (ER) | payer OTHER, SELFPAY ==
[2020-02-27 21:36] VITALS: BP 138/83; PULSE 95; RESP 16; TEMP 36.7; O2SAT 95; BMI 24.3
--- NOTE | 2020-02-27 22:39 | XR_ITS ---
EXAMINATION: XR CHEST portable CLINICAL INFORMATION: 34-year-old male patient with shortness of breath. COMPARISON: Last chest x-ray done 02/02/2020. (Normal). TECHNIQUE: AP portable supine view of the chest was obtained. The time examination was 10:55 PM. FINDINGS: Lung volumes are diminished. The heart is normal in size. The lungs are clear. XR/XR chest 1V IMPRESSION: No acute pulmonary disease.
--- NOTE | 2020-02-27 22:39 | CT_ITS ---
EXAMINATION: CT ABDOMEN AND PELVIS WITHOUT CONTRAST CLINICAL INFORMATION: Abdominal pain. History of pancreatitis. COMPARISON: 12/23/2019. TECHNIQUE: Contiguous axial thin section helical images of the abdomen and pelvis were performed without oral or IV contrast. The data set was reformatted in the coronal and sagittal planes and reviewed on an independent workstation. DLP: 569 mGy-cm. FINDINGS: The visualized lung bases are clear. The visualized portions of the heart are unremarkable. The liver is of normal size and diffuse decreased attenuation without focal lesions nor intrahepatic biliary ductal dilation. A normal gallbladder is identified. There is no wall thickening or discernible pericholecystic fluid. The spleen, pancreas, adrenal glands are unremarkable. Both kidneys are of normal size and attenuation without hydronephrosis or nephrolithiasis. There is no abdominal free fluid. There is neither mesenteric nor retroperitoneal lymphadenopathy. Normal unopacified loops of small and large bowel are identified. A normal appendix is identified. There is no pelvic free fluid. The urinary bladder is unremarkable. There is neither pelvic nor inguinal lymphadenopathy. Bone windows: Neither sclerotic nor lytic bone lesions are identified. CT/CT abdomen pelvis wo con IMPRESSION: No evidence for acute abdominal or pelvic inflammatory or infectious processes. Neither hydronephrosis nor nephrolithiasis. Hepatic steatosis. Automated exposure control (Care Dose) Adjustment of the mA and/or kv according to patient size (this includes techniques or standardized protocols for targeted exams where dose is matched to indication / reason for exam; i.e. extremities or head).
[2020-02-27] MEDS: 0.9 % Sodium Chloride 500 ML 999 ML IVCONT (23:24)
[2020-02-27 23:37] LABS: Basophils Absolute Auto 0.1 X10*3/uL (0.0-0.2); Basophils Percent Auto 1.4 % (0-2); Eosinophils Percent Auto 0.3 % (0-4); Hematocrit 40.4 % (42-52); Hemoglobin 14.1 g/dl (14.0-18.0); Imm Gran Abs Auto 0.01 X10*3/uL (0.00-0.03); Imm Gran Pct Auto 0.2 % (0.0-0.4); Lymphocytes Absolute Auto 2.6 X10*3/uL (1.2-4.9); Lymphocytes Percent Auto 40.8 % (20-40); MANUAL DIFF FLAG NO; Mean Corpuscular HGB Conc 34.9 g/dl (31.0-36.0); Mean Corpuscular Hemoglobin 33.9 pg (27.0-33.0); Mean Corpuscular Volume 97.1 fL (80-98); Mean Platelet Volume 8.5 fL (9.4-12.4); Monocytes Absolute Auto 0.5 X10*3/uL (0.1-1.2); Neutrophils Absolute Auto 3.2 X10*3/uL (2.0-8.3); Neutrophils Percent Auto 50.3 % (45-73); Platelet Count 324 X10*3/uL (160-400); Red Blood Count 4.16 X10*6/uL (4.60-5.80); Red Cell Distribution Width 12.7 % (11.0-16.0); White Blood Count 6.4 X10*3/uL (4.8-10.8)
--- NOTE | 2020-02-27 23:43 | ED_ITS ---
HPI - Alcohol General Chief Complaint: ETOH/Substance Use Stated Complaint: sob,etoh Time Seen by Provider: 02/27/20 22:39 Source: patient Mode of arrival: ambulatory Limitations: no limitations History of Present Illness HPI narrative: 34-year-old male known alcoholic, history of alcoholic pancreatitis and liver cirrhosis, patient presented with multiple complaints, patient admitted that he is intoxicated drink alcohol before arrival. Complaint 1. Upper abdominal pain patient had a history of pancreatitis feel it is like his usual pain for pancreatitis, describes the pain as chronic for few weeks, pain is localized to the epigastric area with no radiation, patient is worsening with drinking alcohol and foods, nothing to relieve the pain, pain is not associated with nausea or vomiting. Complaint 2. Shortness of breath patient is very nonspecific describing the symptoms overall patient has stable O2 sat, no apparent respiratory distress, with normal respiratory rate and O2 saturation in room air. Related Data Home Medications Medication Instructions Recorded Confirmed omeprazole 40 mg capsule,delayed 40 mg PO DAILY 02/19/20 02/19/20 release Previous Rx's Medication Instructions Recorded chlordiazepoxide HCl 25 mg PO Q8H PRN #14 cap 01/20/20 ondansetron 4 mg PO Q8H PRN #20 tab 01/20/20 lorazepam [Ativan] 0.5 mg PO TID PRN #10 tab 02/03/20 ondansetron HCl [Zofran] 4 mg PO Q8H PRN #10 tab 02/03/20 trazodone 100 mg tablet 100 mg PO BEDTIME 90 Days #90 tab 02/14/20 escitalopram oxalate 10 mg tablet 10 mg PO DAILY 90 Days #90 tab 02/19/20 Allergies Allergy/AdvReac Type Severity Reaction Status Date / Time erythromycin base Allergy Mild INFLAMMATIO Verified 02/19/20 07:51 [From ERYTHROCIN] N Certain Abx eye drops AdvReac Unknown Eye Uncoded 02/19/20 07:51 swelling/closing Review of Systems Review of Systems: All other systems are reviewed and are negative Constitutional: Reports as per HPI and Reports no additional constitutional complaints Eyes: Reports as per HPI and Reports no additional eye complaints Reports system reviewed and no additional complaints, except as documented Cardiovascular: Reports as per HPI and Reports no additional cardiovascular complaints Respiratory: Reports as per HPI and Reports no additional respiratory complaints Gastrointestinal: Reports as per HPI and Reports no additional gastrointestinal complaints Genitourinary: Reports no additional female genitourinary complaints Musculoskeletal: Reports no additional musculoskeletal complaints Skin/Breast: Reports system reviewed and no additional complaints, except as docu Psychiatric: Reports no additional psychiatric complaints Endocrine: Reports no additional endocrine complaints Hematologic/Lymphatic: Reports no additional hematologic/lymphatic complaints Allergic/Immunologic: Reports no additional allergic/immunologic complaints Reports system reviewed and no additional complaints, except as documented and Reports Abnormal speech present [facility] Past Medical History Medical History AA (alcohol abuse) Alcoholic gastritis with hemorrhage Anxiety and depression Cirrhosis Erosive esophagitis Fatty liver HTN (hypertension) Pancreatitis Portal hypertension Surgical History No pertinent past surgical history Family History Family History Father No problems noted. Mother Fibromyalgia Maternal Grandmother No problems noted. Maternal Grandfather No problems noted. Paternal Grandmother No problems noted. Paternal Grandfather No problems noted. Brother No problems noted. Brother No problems noted. Sister No problems noted. Sister No problems noted. Sister No problems noted. Sister No problems noted. Sister No problems noted. Social History Social History (Updated 02/19/20 @ 07:40 by Melissa Jeffrey [facility]) Alcohol intake: current Alcohol intake frequency: 3 or more drinks per day Alcohol type: hard liquor Smoking Status: Current some day smoker Use of substances other than those prescribed or required for medical reasons: No Advance Directives: No Physical Exam Vital Signs: Vital Signs: Last Vital Signs Temp 98.6 F 02/27/20 23:49 Pulse 71 02/27/20 23:49 Resp 17 02/27/20 23:49 BP 111/68 02/27/20 23:49 Pulse Ox 98 02/27/20 23:49 Body Mass Index 24.3 Vital signs have been reviewed as normal and appeared to be correct. Blood pressure normal. Heart rate normal. Respiration rate normal. Temperature normal. Oxygen saturation normal. Appearance: Alert. Oriented X3. No acute distress. Head: Normal external exam. Normocephalic. Atraumatic. No Flores signs noted. No raccoon eyes noted Eyes: PERRLA. EOMI. Conjunctiva and sclera normal. Eyelids normal. ENT: EAC normal. TM's Normal. Pharynx normal. Uvula midline. Moist mucous membranes. No trismus noted. No drooling noted. No muffled voice noted. Neck: Normal inspection. Neck supple. FROM. No adenopathy. Thyroid Normal. No meningeal signs. No neck mass noted. CVS: Normal heart rate and rhythm. Heart sound normal. No murmurs noted. Pulses normal throughout. Respiratory: No respiratory distress. Painless inspiration. Breath sounds normal. No wheezes/rales/rhonchi noted. Chest nontender. No accessory muscle usage noted or decreased air movement noted. Abdomen: Mild tenderness in the upper epigastric area, no rebound tenderness, no guarding. Bowel sounds normal in all 4 quadrants. No distention noted. No organomegaly noted. No visible injury noted. Back: No CVA tenderness. Full range of motion noted. Skin: Skin warm and dry. Normal skin color. Normal skin turgor. No rashes/lesions/lacerations noted. Extremities: No lower extremity edema. Extremities exhibit normal range of motion. Extremities nontender. Neuro: Oriented X 3. No motor deficit. No sensory deficit. Reflexes normal. Course Course Course Narrative: 34-year-old male history of alcoholism came in with abdominal pain with history of pancreatitis, patient also was complaining of shortness of breath. Serial abdominal exam, chest x-ray, check alcohol level, check labs, IV fluids, CT abdomen to assess for complicated pancreatitis. MDM - Alcohol MDM Narrative Medical decision making narrative: Assessment and plan. 34-year-old male history of chronic alcoholism with complication of alcoholic pancreatitis and liver cirrhosis, complain of upper abdominal pain thought to be pancreatitis CT of the abdomen pelvis showing no acute pathology, chemistry blood workup was hemolyzed will have to repeat, serum alcohol level is above 400, continue with IV fluids, will discharge when patient is clinically sober. Patient is leaving appear comfortable with stable vital signs. Lab Data Result diagrams: 02/27/20 23:21 02/27/20 23:21 Labs: Lab Results 02/27/20 02/27/20 02/27/20 Range/Units 23:21 23:21 23:21 WBC 6.4 (4.8-10.8) X10*3/uL RBC 4.16 L (4.60-5.80) X10*6/uL Hgb 14.1 (14.0-18.0) g/dl Hct 40.4 L (42-52) % MCV 97.1 (80-98) fL MCH 33.9 H (27.0-33.0) pg MCHC 34.9 (31.0-36.0) g/dl RDW 12.7 (11.0-16.0) % Plt Count 324 D (160-400) X10*3/uL MPV 8.5 L (9.4-12.4) fL Immature Gran % (Auto) 0.2 (0.0-0.4) % Neut % (Auto) 50.3 (45-73) % Lymph % (Auto) 40.8 H (20-40) % [place] % (Auto) 7.0 (2-11) % Eos % (Auto) 0.3 (0-4) % Baso % (Auto) 1.4 (0-2) % Lymph # (Auto) 2.6 (1.2-4.9) X10*3/uL [place] # (Auto) 0.5 (0.1-1.2) X10*3/uL Eos # (Auto) 0.0 (0.0-0.4) X10*3/uL Baso # (Auto) 0.1 (0.0-0.2) X10*3/uL Abs Immat Gran (auto) 0.01 (0.00-0.03) X10*3/uL Absolute Neuts (auto) 3.2 (2.0-8.3) X10*3/uL Absolute Nucleated RBC 0.000 (0.0-0.012) X10*3/uL Nucleated RBC % (auto) 0.0 (0.0-0.2) /100WBC Sodium Cancelled Potassium Cancelled Chloride Cancelled Carbon Dioxide Cancelled Anion Gap Cancelled BUN Cancelled Creatinine Cancelled Estim Creat Clear Calc Cancelled Estimated GFR Cancelled Random Glucose Cancelled Calcium Cancelled Total Bilirubin Cancelled Direct Bilirubin Cancelled AST Cancelled ALT Cancelled Alkaline Phosphatase Cancelled Total Protein Cancelled Albumin Cancelled Lipase Cancelled Ethyl Alcohol 476 H* mg/dL Imaging Data CT scan - abdomen: Radiologist's impression: No evidence for acute abdominal or pelvic inflammatory or infectious processes. Neither hydronephrosis nor nephrolithiasis. Hepatic steatosis. Chest x-ray: Radiologist's impression: No acute intrathoracic pathology. Discharge Plan Discharge Prescriptions: No Action trazodone 100 mg tablet 100 mg PO BEDTIME 90 Days Qty: 90 RF: 0 ondansetron 4 mg tablet,disintegrating 4 mg PO Q8H PRN (Reason: nausea and vomiting) Qty: 20 RF: 0 chlordiazepoxide HCl 25 mg capsule 25 mg PO Q8H PRN (Reason: alcohol withdrawal) Qty: 14 RF: 0 ondansetron HCl [Zofran] 4 mg tablet 4 mg PO Q8H PRN (Reason: nausea and vomiting) Qty: 10 RF: 0 lorazepam [Ativan] 0.5 mg tablet 0.5 mg PO TID PRN (Reason: alcohol withdrawal) Qty: 10 RF: 0 omeprazole 40 mg capsule,delayed release(DR/EC) 40 mg PO DAILY RF: 0 escitalopram oxalate 10 mg tablet 10 mg PO DAILY 90 Days Qty: 90 RF: 2
[2020-02-27 23:49] VITALS: BP 111/68; PULSE 71; RESP 17; TEMP 37; O2SAT 98
[2020-02-27] MEDS: ondansetron HCL 4 MG/2 ML VIAL IVPUSH (23:52)
[2020-02-27 23:56] LABS: Ethanol 476 mg/dL
[2020-02-28] MEDS: 0.9 % Sodium Chloride 500 ML 1000 ML IV ×2 (01:12→02:05)
[2020-02-28 02:00] VITALS: BP 105/62; PULSE 81; RESP 18; TEMP 36.6; O2SAT 94
[2020-02-28 02:12] LABS: Anion Gap 19 (12-20); Blood Urea Nitrogen 14 mg/dL (9-16); Calcium 8.7 mg/dL (8.4-10.2); Carbon Dioxide 24 mmol/L (22-29); Chloride 103 mmol/L (96-108); Creatinine Clr Calc Pharmacy 136.9; Estimated Glomerular Filt Rate > 60; Glucose Random 87 mg/dL (60-115); Potassium 3.4 mmol/l (3.3-5.1); Sodium 143 mmol/L (135-145)
[2020-02-28 02:22] LABS: Alanine Aminotransferase 77 U/L (0-40); Alkaline Phosphatase 88 U/L (39-117); Aspartate Amino Transferase 64 U/L (5-37); Bilirubin Direct 0.2 mg/dL (0.0-0.5); Bilirubin Total 0.2 mg/dL (0.0-1.0)
[2020-02-28 02:38] LABS: Lipase 110 U/L (8-78)
[2020-02-28 03:48] VITALS: RESP 18
[2020-02-28 05:43] VITALS: BP 113/56; PULSE 75; RESP 15; TEMP 36.5; O2SAT 97
== END 2020-02-28 06:28 | disposition home or self-care (01) ==
PROVIDERS: Emergency Provider Emergency Medicine; PCP Nurse Practitioner Family
DX: K85.20 Alcohol induced acute pancreatitis without necrosis or infection (principal); F10.129 Alcohol abuse with intoxication, unspecified; Y90.8 Blood alcohol level of 240 mg/100 ml or more; F17.200 Nicotine dependence, unspecified, uncomplicated; Z71.6 Tobacco abuse counseling; Z79.899 Other long term (current) drug therapy; Z71.41 Alcohol abuse counseling and surveillance of alcoholic
CPT/HCPCS: 36415; 71045; 74176; 80048; 80076; 80320; 83690; 85025; 96365; 96375; 99285; J2405; J3411

== ENCOUNTER 2020-03-12 17:40 | Emergency (ER) | payer OTHER, SELFPAY ==
[2020-03-12] MEDS: 0.9 % Sodium Chloride 1,000 ML 999 ML IVCONT (17:44)
[2020-03-12 17:52] VITALS: BP 135/93; PULSE 79; RESP 18; TEMP 36.7; O2SAT 97; BMI 27.3
--- NOTE | 2020-03-12 17:52 | XR_ITS ---
EXAMINATION: XR CHEST CLINICAL INFORMATION: Cough COMPARISON: 02/27/2020 TECHNIQUE: Frontal view of the chest was obtained. FINDINGS: Aside from poorly expanded lungs unchanged from prior, no significant abnormality is noted involving the heart, lungs, mediastinum, bony thorax or soft tissues. XR/XR chest 1V IMPRESSION: No acute intrathoracic disease.
--- NOTE | 2020-03-12 17:53 | ED_ITS ---
HPI - Abdominal Pain General Chief Complaint: Abdominal Pain Stated Complaint: N/V X 4 DAYS Time Seen by Provider: 03/12/20 17:52 Source: patient, EMS and old records reviewed Mode of arrival: EMS Limitations: no limitations History of Present Illness MD elicited complaint: abdominal pain Pertinent past history: other (ETOH pancreatitis) Onset (ago): day(s) (4) Location: epigastric Severity: similar to previous episodes Quality: aching Radiation: epigastric Migration to: no migration Exacerbating factors: movement Relieving factors: nothing Context: other (heavy ETOH) Associated symptoms: nausea, vomiting and other (I have a cough) Related Data Home Medications Medication Instructions Recorded Confirmed omeprazole 40 mg capsule,delayed 40 mg PO DAILY 02/19/20 02/19/20 release Previous Rx's Medication Instructions Recorded chlordiazepoxide HCl 25 mg PO Q8H PRN #14 cap 01/20/20 ondansetron 4 mg PO Q8H PRN #20 tab 01/20/20 lorazepam [Ativan] 0.5 mg PO TID PRN #10 tab 02/03/20 ondansetron HCl [Zofran] 4 mg PO Q8H PRN #10 tab 02/03/20 trazodone 100 mg tablet 100 mg PO BEDTIME 90 Days #90 tab 02/14/20 escitalopram oxalate 10 mg tablet 10 mg PO DAILY 90 Days #90 tab 02/19/20 Allergies Allergy/AdvReac Type Severity Reaction Status Date / Time erythromycin base Allergy Mild INFLAMMATIO Verified 02/19/20 07:51 [From ERYTHROCIN] N Certain Abx eye drops AdvReac Unknown Eye Uncoded 03/12/20 17:58 swelling/closing Review of Systems Review of Systems Constitutional : No Weight loss, No Fever, No Chills ENT/Mouth : No sore throat, No Rhinorrhea Eyes: No Swelling, No Redness Cardiovascular : No Chest Pain, No SOB, NoEdema Respiratory : pos Cough, No Sputum, No Wheezing Gastrointestinal : Positive Nausea, Positive Vomiting, no Diarrhea, positive abdominal Pain, No Hematochezia, No Melena Genitourinary : No Dysuria, No Urinary Frequency, No Hematuria, No Urgency Musculoskeletal : No joint pain, No Myalgias, No Joint Swelling Skin : No Skin Lesions, No rash Neuro : No Weakness, No Numbness, No Dizziness, No Headache Psych : No Anxiety/Panic, No Depression Heme/Lymph: No Bruising, No Lymphadenopathy Endocrine : No Polyuria, No Polydipsia All other systems reviewed and are negative. Physical Exam Vital Signs: Vital Signs: Last Vital Signs Temp 98.1 F 03/12/20 23:59 Pulse 97 03/12/20 23:59 Resp 15 03/12/20 23:59 BP 117/80 03/12/20 23:59 Pulse Ox 99 03/12/20 23:59 Body Mass Index 27.3 Appearance: Alert. Oriented X3. No acute distress. ETOH odor, slurred speech Eyes: Pupils equal, round and reactive to light. ENT: Pharynx normal. Neck: Normal inspection. Neck supple. CVS: Normal heart rate and rhythm. Pulses normal. Respiratory: No respiratory distress. Breath sounds normal. Abdomen: Soft and moderate epigastric ttp, no rebound or guarding Skin: Skin warm and dry. Normal skin color. Normal skin turgor. Extremities: No lower extremity edema. No calf ttp Neuro: Oriented X 3. No motor deficit. No sensory deficit. Course Course Course Narrative: just had CT Scan 02/26 lipase chronically alfred, LFTs due to ETOH prior elevations of same, currently asleep patient still asleep signed out pending sobriety MDM - Abdominal Pain MDM Narrative Medical decision making narrative: 34 yo male with chronic ETOH abuse hx of cirrhosis and pancreatitis c/o epigastric pain as well as n/v x 4 days, intoxicated in ED, will need labs, IVF, zofran, c/o cough CXR ordered, dispo per results and findings. Lab Data Result diagrams: 03/12/20 18:11 03/12/20 18:11 Labs: Lab Results 03/12/20 03/12/20 03/12/20 Range/Units 17:52 18:11 18:11 WBC 2.3 L (4.8-10.8) X10*3/uL RBC 4.58 L (4.60-5.80) X10*6/uL Hgb 15.7 (14.0-18.0) g/dl Hct 42.9 (42-52) % MCV 93.7 (80-98) fL MCH 34.3 H (27.0-33.0) pg MCHC 36.6 H (31.0-36.0) g/dl RDW 12.7 (11.0-16.0) % Plt Count TNP MPV 10.0 (9.4-12.4) fL Immature Gran % (Auto) 0.4 (0.0-0.4) % Neut % (Auto) 57.5 (45-73) % Lymph % (Auto) 29.9 (20-40) % [place] % (Auto) 11.3 H (2-11) % Eos % (Auto) 0.0 (0-4) % Baso % (Auto) 0.9 (0-2) % Lymph # (Auto) 0.7 L (1.2-4.9) X10*3/uL [place] # (Auto) 0.3 (0.1-1.2) X10*3/uL Eos # (Auto) 0.0 (0.0-0.4) X10*3/uL Baso # (Auto) 0.0 (0.0-0.2) X10*3/uL Abs Immat Gran (auto) 0.01 (0.00-0.03) X10*3/uL Absolute Neuts (auto) 1.3 L (2.0-8.3) X10*3/uL Absolute Nucleated RBC 0.000 (0.0-0.012) X10*3/uL Nucleated RBC % (auto) 0.0 (0.0-0.2) /100WBC PT (10.8-13.0) SEC INR (0.9-1.1) APTT (24.1-38.0) SEC Sodium 136 (135-145) mmol/L Potassium 3.5 (3.3-5.1) mmol/l Chloride 84 L (96-108) mmol/L Carbon Dioxide 27 (22-29) mmol/L Anion Gap 29 H (12-20) BUN 16 (9-16) mg/dL Creatinine 0.68 (0.5-1.4) mg/dL Estim Creat Clear Calc 155.0 Estimated GFR > 60 POC Glucose 104 (60-115) mg/dL Random Glucose 92 (60-115) mg/dL Calcium 9.0 (8.4-10.2) mg/dL Magnesium 1.8 (1.6-2.6) mg/dL Total Bilirubin 1.6 H (0.0-1.0) mg/dL Direct Bilirubin 0.9 H (0.0-0.5) mg/dL AST 433 H (5-37) U/L ALT 171 H (0-40) U/L Alkaline Phosphatase 139 H D (39-117) U/L Ammonia (13-55) umol/L Total Protein 8.8 H D (6.5-8.0) g/dL Albumin 4.7 (3.5-5.0) g/dL Lipase 183 H (8-78) U/L Ethyl Alcohol mg/dL 03/12/20 03/12/20 03/12/20 Range/Units 18:11 18:22 18:24 WBC (4.8-10.8) X10*3/uL RBC (4.60-5.80) X10*6/uL Hgb (14.0-18.0) g/dl Hct (42-52) % MCV (80-98) fL MCH (27.0-33.0) pg MCHC (31.0-36.0) g/dl RDW (11.0-16.0) % Plt Count MPV (9.4-12.4) fL Immature Gran % (Auto) (0.0-0.4) % Neut % (Auto) (45-73) % Lymph % (Auto) (20-40) % [place] % (Auto) (2-11) % Eos % (Auto) (0-4) % Baso % (Auto) (0-2) % Lymph # (Auto) (1.2-4.9) X10*3/uL [place] # (Auto) (0.1-1.2) X10*3/uL Eos # (Auto) (0.0-0.4) X10*3/uL Baso # (Auto) (0.0-0.2) X10*3/uL Abs Immat Gran (auto) (0.00-0.03) X10*3/uL Absolute Neuts (auto) (2.0-8.3) X10*3/uL Absolute Nucleated RBC (0.0-0.012) X10*3/uL Nucleated RBC % (auto) (0.0-0.2) /100WBC PT 10.3 L (10.8-13.0) SEC INR 0.9 (0.9-1.1) APTT 27.7 (24.1-38.0) SEC Sodium (135-145) mmol/L Potassium (3.3-5.1) mmol/l Chloride (96-108) mmol/L Carbon Dioxide (22-29) mmol/L Anion Gap (12-20) BUN (9-16) mg/dL Creatinine (0.5-1.4) mg/dL Estim Creat Clear Calc Estimated GFR POC Glucose (60-115) mg/dL Random Glucose (60-115) mg/dL Calcium (8.4-10.2) mg/dL Magnesium (1.6-2.6) mg/dL Total Bilirubin (0.0-1.0) mg/dL Direct Bilirubin (0.0-0.5) mg/dL AST (5-37) U/L ALT (0-40) U/L Alkaline Phosphatase (39-117) U/L Ammonia 57 H (13-55) umol/L Total Protein (6.5-8.0) g/dL Albumin (3.5-5.0) g/dL Lipase (8-78) U/L Ethyl Alcohol 445 H* mg/dL Discharge Plan Discharge Clinical Impression: Abnormal LFTs Alcohol intoxication Qualifiers: Complication of substance-induced condition: uncomplicated Qualified Code(s): F10.920 - Alcohol use, unspecified with intoxication, uncomplicated Instructions: Abuse of Alcohol (ED) Additional Instructions: return to ED for any worsening symptoms or concerns your liver function tests were elevated please stop drinking and follow up with your doctor to have them rechecked Prescriptions: No Action trazodone 100 mg tablet 100 mg PO BEDTIME 90 Days Qty: 90 RF: 0 ondansetron 4 mg tablet,disintegrating 4 mg PO Q8H PRN (Reason: nausea and vomiting) Qty: 20 RF: 0 chlordiazepoxide HCl 25 mg capsule 25 mg PO Q8H PRN (Reason: alcohol withdrawal) Qty: 14 RF: 0 ondansetron HCl [Zofran] 4 mg tablet 4 mg PO Q8H PRN (Reason: nausea and vomiting) Qty: 10 RF: 0 lorazepam [Ativan] 0.5 mg tablet 0.5 mg PO TID PRN (Reason: alcohol withdrawal) Qty: 10 RF: 0 omeprazole 40 mg capsule,delayed release(DR/EC) 40 mg PO DAILY RF: 0 escitalopram oxalate 10 mg tablet 10 mg PO DAILY 90 Days Qty: 90 RF: 2 Referrals: Physician,Unknown [Primary Care Provider] - 2 days PMF Past Medical History Attestation statement: The following information was validated with the patient. Medical History AA (alcohol abuse) Alcoholic gastritis with hemorrhage Anxiety and depression Cirrhosis Erosive esophagitis Fatty liver HTN (hypertension) Pancreatitis Portal hypertension Surgical History No pertinent past surgical history Family History Family History Father No problems noted. Mother Fibromyalgia Maternal Grandmother No problems noted. Maternal Grandfather No problems noted. Paternal Grandmother No problems noted. Paternal Grandfather No problems noted. Brother No problems noted. Brother No problems noted. Sister No problems noted. Sister No problems noted. Sister No problems noted. Sister No problems noted. Sister No problems noted. Social History Social History Alcohol intake: current Alcohol intake frequency: 3 or more drinks per day Alcohol type: hard liquor Smoking Status: Unknown if ever smoked Use of substances other than those prescribed or required for medical reasons: No Advance Directives: No Advance Directives Information Provided: Yes
[2020-03-12 17:55] LABS: Glucose, Whole Blood 104 mg/dL (60-115)
[2020-03-12 18:31] LABS: Basophils Percent Auto 0.9 % (0-2); Hematocrit 42.9 % (42-52); Hemoglobin 15.7 g/dl (14.0-18.0); Imm Gran Abs Auto 0.01 X10*3/uL (0.00-0.03); Imm Gran Pct Auto 0.4 % (0.0-0.4); Lymphocytes Absolute Auto 0.7 X10*3/uL (1.2-4.9); Lymphocytes Percent Auto 29.9 % (20-40); MANUAL DIFF FLAG NO; Mean Corpuscular HGB Conc 36.6 g/dl (31.0-36.0); Mean Corpuscular Hemoglobin 34.3 pg (27.0-33.0); Mean Corpuscular Volume 93.7 fL (80-98); Monocytes Absolute Auto 0.3 X10*3/uL (0.1-1.2); Monocytes Percent Auto 11.3 % (2-11); Neutrophils Absolute Auto 1.3 X10*3/uL (2.0-8.3); Neutrophils Percent Auto 57.5 % (45-73); Red Blood Count 4.58 X10*6/uL (4.60-5.80); Red Cell Distribution Width 12.7 % (11.0-16.0); SCAN SMEAR FLAG 1
[2020-03-12 18:36] LABS: INTERNATIONAL NORM RATIO 0.9 (0.9-1.1); Prothrombin Time 10.3 SEC (10.8-13.0)
[2020-03-12 18:39] LABS: Partial Thromboplastin Time 27.7 SEC (24.1-38.0)
[2020-03-12] MEDS: ondansetron HCL 4 MG/2 ML VIAL IVPUSH (18:43)
[2020-03-12 18:52] LABS: Ammonia 57 umol/L (13-55)
[2020-03-12 19:10] LABS: Ethanol 445 mg/dL
[2020-03-12 19:10] LABS: Anion Gap 29 (12-20); Blood Urea Nitrogen 16 mg/dL (9-16); Carbon Dioxide 27 mmol/L (22-29); Chloride 84 mmol/L (96-108); Estimated Glomerular Filt Rate > 60; Glucose Random 92 mg/dL (60-115); Potassium 3.5 mmol/l (3.3-5.1); Sodium 136 mmol/L (135-145)
[2020-03-12 19:13] LABS: White Blood Count 2.3 X10*3/uL (4.8-10.8)
--- NOTE | 2020-03-12 19:49 | PC.NURSE ---
Pt sleeping, easily awoke, no distress noted, sinus on tele.
[2020-03-12 19:57] VITALS: BP 97/64; PULSE 99; RESP 16; TEMP 36.6; O2SAT 95
[2020-03-12 20:56] LABS: Alanine Aminotransferase 171 U/L (0-40); Albumin Level 4.7 g/dL (3.5-5.0); Alkaline Phosphatase 139 U/L (39-117); Aspartate Amino Transferase 433 U/L (5-37); Bilirubin Direct 0.9 mg/dL (0.0-0.5); Bilirubin Total 1.6 mg/dL (0.0-1.0); Lipase 183 U/L (8-78); Magnesium 1.8 mg/dL (1.6-2.6); Total Protein 8.8 g/dL (6.5-8.0)
[2020-03-12 22:00] VITALS: BP 110/66; PULSE 86; RESP 14; TEMP 36.1; O2SAT 94
[2020-03-12 23:59] VITALS: BP 117/80; PULSE 97; RESP 15; TEMP 36.7; O2SAT 99
[2020-03-13 02:00] VITALS: BP 129/84; PULSE 97; RESP 17; TEMP 36.9; O2SAT 97
[2020-03-13 04:00] VITALS: BP 130/84; PULSE 107; RESP 14; TEMP 36.9; O2SAT 98
[2020-03-13 06:00] VITALS: BP 129/53; PULSE 105; RESP 17; TEMP 36.8; O2SAT 98
[2020-03-13] MEDS: Magnesium Hydrox/Alum Hydrox 30 ML ORAL.SUSP 15 ML PO (06:33)
[2020-03-13] MEDS: ondansetron HCL 4 MG/2 ML VIAL IVPUSH (06:33)
[2020-03-13] MEDS: chlordiazePOXIDE HCl 25 MG CAPSULE PO (06:46)
== END 2020-03-13 06:37 | disposition home or self-care (01) ==
PROVIDERS: Emergency Medicine; Emergency Provider Emergency Medicine
DX: F10.129 Alcohol abuse with intoxication, unspecified (principal); R10.13 Epigastric pain; R94.5 Abnormal results of liver function studies; Y90.8 Blood alcohol level of 240 mg/100 ml or more; Z79.899 Other long term (current) drug therapy
CPT/HCPCS: 36415; 71045; 80048; 80076; 80320; 82140; 82947; 83690; 83735; 85025; 85060; 85610; 85730; 96361; 96374; 99284; 99285; J2405

== ENCOUNTER 2020-03-18 07:36 | Outpatient (REF) | payer OTHER, SELFPAY ==
[2020-03-18 12:37] LABS: Alanine Aminotransferase 234 U/L (0-40); Albumin Level 4.5 g/dL (3.5-5.0); Alkaline Phosphatase 153 U/L (39-117); Aspartate Amino Transferase 301 U/L (5-37); Bilirubin Total 1.1 mg/dL (0.0-1.0); Blood Urea Nitrogen 15 mg/dL (9-16); Calcium 10.2 mg/dL (8.4-10.2); Estimated Glomerular Filt Rate > 60; Glucose Fasting 95 mg/dL (60-99); Total Protein 8.3 g/dL (6.5-8.0)
[2020-03-18 12:52] LABS: Anion Gap 15 (12-20); Carbon Dioxide 32 mmol/L (22-29); Chloride 94 mmol/L (96-108); Lipase 129 U/L (8-78); Potassium 2.9 mmol/l (3.3-5.1); Sodium 138 mmol/L (135-145)
[2020-03-18 17:05] LABS: Anion Gap 13 (12-20); Carbon Dioxide 30 mmol/L (22-29); Chloride 97 mmol/L (96-108); Potassium 3.1 mmol/l (3.3-5.1); Sodium 137 mmol/L (135-145)
== END 2020-03-18 07:37 | disposition home or self-care (01) ==
LOC: HO.HMGCLDS 07:36
PROVIDERS: PCP Nurse Practitioner Family; Visit Provider Nurse Practitioner Family
DX: F10.10 Alcohol abuse, uncomplicated (principal); E87.6 Hypokalemia
CPT/HCPCS: 80051; 80053; 83690

== ENCOUNTER 2020-03-27 07:09 | Outpatient (REF) | payer OTHER, SELFPAY ==
[2020-03-27 12:10] LABS: Alanine Aminotransferase 112 U/L (0-40); Alkaline Phosphatase 111 U/L (39-117); Anion Gap 13 (12-20); Aspartate Amino Transferase 69 U/L (5-37); Bilirubin Total 0.3 mg/dL (0.0-1.0); Blood Urea Nitrogen 9 mg/dL (9-16); Carbon Dioxide 29 mmol/L (22-29); Chloride 101 mmol/L (96-108); Estimated Glomerular Filt Rate > 60; Glucose Fasting 90 mg/dL (60-99); Potassium 3.6 mmol/l (3.3-5.1); Sodium 139 mmol/L (135-145)
== END 2020-03-27 07:10 | disposition home or self-care (01) ==
LOC: HO.HMGCLDS 07:09
PROVIDERS: PCP Nurse Practitioner Family; Visit Provider Nurse Practitioner Family
DX: F10.10 Alcohol abuse, uncomplicated (principal)
CPT/HCPCS: 80053

== ENCOUNTER 2020-07-22 06:39 | Outpatient (REF) | payer OTHER, SELFPAY ==
[2020-07-22 12:17] LABS: TSH reflex Free T4 1.17 uIU/mL (0.32-4.0)
[2020-07-22 12:22] LABS: Alanine Aminotransferase 91 U/L (0-40); Albumin Level 3.8 g/dL (3.5-5.0); Alkaline Phosphatase 143 U/L (39-117); Anion Gap 12 (12-20); Aspartate Amino Transferase 75 U/L (5-37); Bilirubin Total 0.3 mg/dL (0.0-1.0); Blood Urea Nitrogen 14 mg/dL (9-16); Calcium 9.6 mg/dL (8.4-10.2); Carbon Dioxide 29 mmol/L (22-29); Chloride 104 mmol/L (96-108); Cholesterol 177 mg/dL; Estimated Glomerular Filt Rate > 60; Glucose Fasting 89 mg/dL (60-99); HDL Cholesterol 49 mg/dL; LDL Cholesterol Calculated 100 mg/dl; Potassium 4.1 mmol/L (3.3-5.1); Sodium 141 mmol/L (135-145); Triglycerides 141 mg/dL
[2020-07-22 12:28] LABS: Estimated Average Glucose 94 mg/dL; Hemoglobin A1c % 4.9 %
[2020-07-24 18:12] LABS: TS Negative Control Passed; TS Panel A 0; TS Panel B 0; TS Positive Control Passed; TSpotTB Negative (SeeBelow)
== END 2020-07-22 06:40 | disposition home or self-care (01) ==
LOC: HO.HMGCLDS 06:39
PROVIDERS: PCP Nurse Practitioner Family; Visit Provider Nurse Practitioner Family
DX: Z11.1 Encounter for screening for respiratory tuberculosis (principal); I10 Essential (primary) hypertension
CPT/HCPCS: 36415; 80053; 80061; 83036; 84443; 86481

== ENCOUNTER 2020-09-02 18:41 | Emergency (ER) | payer OTHER, SELFPAY ==
--- NOTE | ~2020-09-02 | CT_ITS ---
EXAMINATION: CT ABDOMEN AND PELVIS WITH CONTRAST CLINICAL INFORMATION: Hematemesis, history pancreatitis, cirrhosis COMPARISON: 02/27/2020 TECHNIQUE: Multidetector volumetric images were obtained from the superior aspect of the liver through the pubic symphysis following administration 85 mL of Omnipaque 350 intravenous contrast. Sagittal and coronal reformatted images were obtained on the technologist's workstation. Oral contrast: No This CT examination was performed using dose optimization techniques as appropriate, variously including the following: *Automated exposure control *Adjustment of mA and/or kV according to patient size (this includes techniques or standardized protocols for targeted exams where dose is matched to indication/reason for exam; i.e. extremities or head) *Use of iterative reconstruction technique DLP: 600 mGy-cm FINDINGS: LUNG BASES: The visualized lung bases are unremarkable. LIVER, GALLBLADDER, AND BILIARY TREE: The liver demonstrates hypoattenuation suspicious for steatosis. No focal hepatic lesion or biliary ductal dilatation is present. The gallbladder is unremarkable with no evidence of radiopaque gallstones, gallbladder wall thickening, or obvious pericholecystic inflammatory changes. PANCREAS: Unremarkable. SPLEEN: Unremarkable. ADRENAL GLANDS: Unremarkable. KIDNEYS AND URETERS: The kidneys are normal in size, shape, and attenuation. No hydronephrosis, hydroureter, or obstructing calculi seen. No perinephric stranding. BLADDER: Unremarkable. GASTROINTESTINAL TRACT: No evidence of bowel obstruction. There is prominence of submucosal fat within some segments of the colon, which can be seen as sequelae of prior inflammation. The appendix is unremarkable. No free fluid or free air is seen. ABDOMINAL WALL: No significant hernia is appreciated. LYMPH NODES: Normal. VASCULAR: Unremarkable. PELVIC VISCERA: Unremarkable. OSSEOUS STRUCTURES: Unremarkable. CT/CT abdomen pelvis w con IMPRESSION: No acute findings identified in the abdomen/pelvis. Hepatic steatosis.
[2020-09-02 19:20] VITALS: BP 143/93; PULSE 99; RESP 20; TEMP 37.4; O2SAT 95; BMI 24.7
[2020-09-02 20:10] LABS: MANUAL DIFF FLAG NO
[2020-09-02 20:12] LABS: Basophils Absolute Auto 0.1 X10*3/uL (0.0-0.2); Basophils Percent Auto 1.1 % (0-2); Eosinophils Absolute Auto 0.1 X10*3/uL (0.0-0.4); Eosinophils Percent Auto 1.1 % (0-4); Hematocrit 37.8 % (42-52); Hemoglobin 13.3 g/dl (14.0-18.0); Imm Gran Abs Auto 0.01 X10*3/uL (0.00-0.03); Imm Gran Pct Auto 0.2 % (0.0-0.4); Lymphocytes Absolute Auto 1.5 X10*3/uL (1.2-4.9); Lymphocytes Percent Auto 30.5 % (20-40); Mean Corpuscular HGB Conc 35.2 g/dl (31.0-36.0); Mean Corpuscular Hemoglobin 35.1 pg (27.0-33.0); Mean Corpuscular Volume 99.7 fL (80-98); Mean Platelet Volume 8.4 fL (9.4-12.4); Monocytes Absolute Auto 0.3 X10*3/uL (0.1-1.2); Monocytes Percent Auto 6.7 % (2-11); Neutrophils Absolute Auto 2.9 X10*3/uL (2.0-8.3); Neutrophils Percent Auto 60.4 % (45-73); Platelet Count 137 X10*3/uL (160-400); Red Blood Count 3.79 X10*6/uL (4.60-5.80); Red Cell Distribution Width 13.3 % (11.0-16.0); White Blood Count 4.8 X10*3/uL (4.8-10.8)
[2020-09-02 20:42] LABS: Lipase 67 U/L (8-78)
[2020-09-02 20:53] LABS: Alanine Aminotransferase 43 U/L (0-40); Albumin Level 4.6 g/dL (3.5-5.0); Alkaline Phosphatase 85 U/L (39-117); Anion Gap 26 (12-20); Aspartate Amino Transferase 89 U/L (5-37); Bilirubin Total 0.8 mg/dL (0.0-1.0); Blood Urea Nitrogen 8 mg/dL (9-16); Calcium 9.3 mg/dL (8.4-10.2); Carbon Dioxide 24 mmol/L (22-29); Chloride 98 mmol/L (96-108); Creatinine Clr Calc Pharmacy 122.8; Estimated Glomerular Filt Rate > 60; Glucose Random 88 mg/dL (60-115); Potassium 3.5 mmol/L (3.3-5.1); Sodium 144 mmol/L (135-145); Total Protein 8.3 g/dL (6.5-8.0)
--- NOTE | 2020-09-03 00:20 | ED_ITS ---
HPI - Nausea/Vomiting/Diarrhea General Chief complaint: Abdominal Pain Stated complaint: withdrawal Time Seen by Provider: 09/03/20 00:20 Source: patient Mode of arrival: ambulatory Limitations: no limitations History of Present Illness MD elicited complaint: nausea, vomiting and abdominal pain Pertinent past history: alcohol abuse and pacreatitis Onset (ago): day(s) (one day) Description of vomiting: bloody Associated nausea: Yes Associated abdominal pain: Yes Location of pain: epigastric Pain consistency: constant Severity: moderate Quality: stabbing Exacerbating factors: eating Relieving factors: none Context: alcohol abuse Associated symptoms: loss of appetite, malaise, nausea/vomiting and weakness Related Data Previous Rx's Medication Instructions Recorded chlordiazepoxide HCl 25 mg PO Q8H PRN #14 cap 01/20/20 ondansetron 4 mg PO Q8H PRN #20 tab 01/20/20 ondansetron HCl [Zofran] 4 mg PO Q8H PRN #10 tab 02/03/20 escitalopram oxalate 10 mg tablet 10 mg PO DAILY 90 Days #90 tab 02/19/20 chlordiazepoxide HCl 25 mg PO TID #15 cap 03/13/20 chlorthalidone 25 mg tablet 25 mg PO DAILY 30 Days #30 tab 03/13/20 ondansetron 4 mg PO Q8H PRN 5 Days #14 tab 03/13/20 clonazepam 1 mg tablet 1 mg PO BID PRN 30 Days #60 tab 08/08/20 omeprazole 40 mg capsule,delayed 40 mg PO DAILY 30 Days #30 cap 08/08/20 release trazodone 100 mg tablet 100 mg PO BEDTIME #30 tab 08/08/20 chlordiazepoxide HCl See Rx Instructions .ROUTE 09/03/20 .COMPLEX PRN #30 cap ondansetron 4 mg PO Q8H PRN #20 tab 09/03/20 Allergies Allergy/AdvReac Type Severity Reaction Status Date / Time erythromycin base Allergy Mild INFLAMMATIO Verified 09/02/20 19:18 [From ERYTHROCIN] N Certain Abx eye drops AdvReac Unknown Eye Uncoded 03/12/20 17:58 swelling/closing Review of Systems Review of Systems: Constitutional : No Weight loss, No Fever, No Chills ENT/Mouth : No sore throat, No Rhinorrhea Eyes: No Swelling, No Redness Cardiovascular : No Chest Pain, No SOB, NoEdema Respiratory : No Cough, No Sputum, No Wheezing Gastrointestinal : Positive Nausea, Positive Vomiting, no Diarrhea, positive abdominal Pain, No Hematochezia, No Melena, pos hematemesis Genitourinary : No Dysuria, No Urinary Frequency, No Hematuria, No Urgency Musculoskeletal : No joint pain, No Myalgias, No Joint Swelling Skin : No Skin Lesions, No rash Neuro : No Weakness, No Numbness, No Dizziness, No Headache Psych : No Anxiety/Panic, No Depression Heme/Lymph: No Bruising, No Lymphadenopathy Endocrine : No Polyuria, No Polydipsia All other systems reviewed and are negative. Gastrointestinal: Gastrointestinal: Reports nausea PMFSH Past Medical History Attestation statement: The following information was validated with the patient. Medical History AA (alcohol abuse) Alcoholic gastritis with hemorrhage Anxiety and depression Cirrhosis Erosive esophagitis Fatty liver HTN (hypertension) Pancreatitis Portal hypertension Surgical History No pertinent past surgical history Family History Family History Father No problems noted. Mother Fibromyalgia Maternal Grandmother No problems noted. Maternal Grandfather No problems noted. Paternal Grandmother No problems noted. Paternal Grandfather No problems noted. Brother No problems noted. Brother No problems noted. Sister No problems noted. Sister No problems noted. Sister No problems noted. Sister No problems noted. Sister No problems noted. Social History Social History Alcohol intake: current Alcohol intake frequency: 3 or more drinks per day Alcohol type: hard liquor Smoking Status: Unknown if ever smoked Advance Directives: No Advance Directives Information Provided: No Physical Exam Vital Signs: Vital Signs: Last Vital Signs Temp 98.7 F 09/03/20 00:47 Pulse 78 09/03/20 00:47 Resp 16 09/03/20 00:47 BP 137/79 09/03/20 00:47 Pulse Ox 97 09/03/20 00:47 Body Mass Index 24.7 Appearance: Alert. Oriented X3. No acute distress. Eyes: Pupils equal, round and reactive to light. ENT: Pharynx normal. Neck: Normal inspection. Neck supple. CVS: Normal heart rate and rhythm. Pulses normal. Respiratory: No respiratory distress. Breath sounds normal. Abdomen: Soft and mild epigastric ttp Rectal: brown stool Skin: Skin warm and dry. pale skin color. Normal skin turgor. Extremities: No lower extremity edema. No calf ttp Neuro: Oriented X 3. No motor deficit. No sensory deficit. Slightly shaky Course Course Course Narrative: endscopy 06/2019 - esophagitis, proximal gastritis no varices seen. currently tolerating PO, repeating H/H no vomiting since arrival in ED, initial H/H stable, guiac negative repeat H/H stable, AG due to ETOH, anticipate DC home in the AM with ride, he feels much better at this time. plans to go back on naltrexone no vomiting x 10 hours, no signs of GIB, VS stable, H/H stable - can be DC this AM, feels well enough to go home. MDM - Nausea/Vomiting/Diarrhea MDM Narrative Medical decision making narrative: 35 yo male with cirrhosis, ETOH abuse last drink 4pm, hx of GIB last scope at [facility] [place] requested here with n/v abdominal pain and hematemesis - at this time labs, IVF, IV ativan, IV protonix, dispo per results and findings, may need admission for further workup and care. Lab Data Result diagrams: 09/03/20 01:49 09/02/20 20:04 Labs: Lab Results 09/02/20 09/02/20 09/02/20 Range/Units 20:04 20:04 20:04 WBC 4.8 (4.8-10.8) X10*3/uL RBC 3.79 L (4.60-5.80) X10*6/uL Hgb 13.3 L (14.0-18.0) g/dl Hct 37.8 L (42-52) % MCV 99.7 H (80-98) fL MCH 35.1 H (27.0-33.0) pg MCHC 35.2 (31.0-36.0) g/dl RDW 13.3 (11.0-16.0) % Plt Count 137 L D (160-400) X10*3/uL MPV 8.4 L (9.4-12.4) fL Immature Gran % (Auto) 0.2 (0.0-0.4) % Neut % (Auto) 60.4 (45-73) % Lymph % (Auto) 30.5 (20-40) % [place] % (Auto) 6.7 (2-11) % Eos % (Auto) 1.1 (0-4) % Baso % (Auto) 1.1 (0-2) % Lymph # (Auto) 1.5 (1.2-4.9) X10*3/uL [place] # (Auto) 0.3 (0.1-1.2) X10*3/uL Eos # (Auto) 0.1 (0.0-0.4) X10*3/uL Baso # (Auto) 0.1 (0.0-0.2) X10*3/uL Abs Immat Gran (auto) 0.01 (0.00-0.03) X10*3/uL Absolute Neuts (auto) 2.9 (2.0-8.3) X10*3/uL Absolute Nucleated RBC 0.000 (0.0-0.012) X10*3/uL Nucleated RBC % (auto) 0.0 (0.0-0.2) /100WBC Hold Blue Top SEE NOTE VBG pH (7.32-7.43) VBG pCO2 mmHg VBG pO2 mmHg VBG HCO3 (22-26) mmol/L VBG O2 Saturation % VBG Base Excess mmol/L Sodium (135-145) mmol/L Potassium (3.3-5.1) mmol/L Chloride (96-108) mmol/L Carbon Dioxide (22-29) mmol/L Anion Gap (12-20) BUN (9-16) mg/dL Creatinine (0.5-1.4) mg/dL Estim Creat Clear Calc Estimated GFR Random Glucose (60-115) mg/dL Calcium (8.4-10.2) mg/dL Magnesium (1.6-2.6) mg/dL Total Bilirubin (0.0-1.0) mg/dL AST (5-37) U/L ALT (0-40) U/L Alkaline Phosphatase (39-117) U/L Total Protein (6.5-8.0) g/dL Albumin (3.5-5.0) g/dL Lipase 67 (8-78) U/L Urine Color Urine Appearance Urine pH (5.0-8.0) Ur Specific [place] (1.005-1.025) Urine Protein (NEG-TRACE) MG/DL Urine Glucose (UA) (NEG) MG/DL Urine Ketones (NEG) MG/DL Urine Blood (NEG) Urine Nitrite (NEG) Ur Leukocyte Esterase (NEG) Urine RBC (0) /HPF Urine WBC (0-4) /HPF Urine WBC Clumps Ur Squamous Epith Cells /LPF Amorphous Sediment /LPF Urine Bacteria /LPF Hyaline Casts /LPF Urine Mucus /LPF Stool Occult Blood (NEGATIVE) Ethyl Alcohol mg/dL Blood Type Antibody Screen 09/02/20 09/03/20 09/03/20 Range/Units 20:04 00:42 00:45 WBC (4.8-10.8) X10*3/uL RBC (4.60-5.80) X10*6/uL Hgb (14.0-18.0) g/dl Hct (42-52) % MCV (80-98) fL MCH (27.0-33.0) pg MCHC (31.0-36.0) g/dl RDW (11.0-16.0) % Plt Count (160-400) X10*3/uL MPV (9.4-12.4) fL Immature Gran % (Auto) (0.0-0.4) % Neut % (Auto) (45-73) % Lymph % (Auto) (20-40) % [place] % (Auto) (2-11) % Eos % (Auto) (0-4) % Baso % (Auto) (0-2) % Lymph # (Auto) (1.2-4.9) X10*3/uL [place] # (Auto) (0.1-1.2) X10*3/uL Eos # (Auto) (0.0-0.4) X10*3/uL Baso # (Auto) (0.0-0.2) X10*3/uL Abs Immat Gran (auto) (0.00-0.03) X10*3/uL Absolute Neuts (auto) (2.0-8.3) X10*3/uL Absolute Nucleated RBC (0.0-0.012) X10*3/uL Nucleated RBC % (auto) (0.0-0.2) /100WBC Hold Blue Top VBG pH (7.32-7.43) VBG pCO2 mmHg VBG pO2 mmHg VBG HCO3 (22-26) mmol/L VBG O2 Saturation % VBG Base Excess mmol/L Sodium 144 (135-145) mmol/L Potassium 3.5 (3.3-5.1) mmol/L Chloride 98 (96-108) mmol/L Carbon Dioxide 24 (22-29) mmol/L Anion Gap 26 H (12-20) BUN 8 L (9-16) mg/dL Creatinine 0.85 (0.5-1.4) mg/dL Estim Creat Clear Calc 122.8 Estimated GFR > 60 Random Glucose 88 (60-115) mg/dL Calcium 9.3 (8.4-10.2) mg/dL Magnesium 1.7 (1.6-2.6) mg/dL Total Bilirubin 0.8 (0.0-1.0) mg/dL AST 89 H (5-37) U/L ALT 43 H (0-40) U/L Alkaline Phosphatase 85 D (39-117) U/L Total Protein 8.3 H (6.5-8.0) g/dL Albumin 4.6 D (3.5-5.0) g/dL Lipase (8-78) U/L Urine Color Urine Appearance Urine pH (5.0-8.0) Ur Specific [place] (1.005-1.025) Urine Protein (NEG-TRACE) MG/DL Urine Glucose (UA) (NEG) MG/DL Urine Ketones (NEG) MG/DL Urine Blood (NEG) Urine Nitrite (NEG) Ur Leukocyte Esterase (NEG) Urine RBC (0) /HPF Urine WBC (0-4) /HPF Urine WBC Clumps Ur Squamous Epith Cells /LPF Amorphous Sediment /LPF Urine Bacteria /LPF Hyaline Casts /LPF Urine Mucus /LPF Stool Occult Blood NEGATIVE (NEGATIVE) Ethyl Alcohol 360 H* mg/dL Blood Type Antibody Screen 09/03/20 09/03/20 09/03/20 Range/Units 00:46 00:51 01:49 WBC (4.8-10.8) X10*3/uL RBC (4.60-5.80) X10*6/uL Hgb 13.2 L (14.0-18.0) g/dl Hct (42-52) % MCV (80-98) fL MCH (27.0-33.0) pg MCHC (31.0-36.0) g/dl RDW (11.0-16.0) % Plt Count (160-400) X10*3/uL MPV (9.4-12.4) fL Immature Gran % (Auto) (0.0-0.4) % Neut % (Auto) (45-73) % Lymph % (Auto) (20-40) % [place] % (Auto) (2-11) % Eos % (Auto) (0-4) % Baso % (Auto) (0-2) % Lymph # (Auto) (1.2-4.9) X10*3/uL [place] # (Auto) (0.1-1.2) X10*3/uL Eos # (Auto) (0.0-0.4) X10*3/uL Baso # (Auto) (0.0-0.2) X10*3/uL Abs Immat Gran (auto) (0.00-0.03) X10*3/uL Absolute Neuts (auto) (2.0-8.3) X10*3/uL Absolute Nucleated RBC (0.0-0.012) X10*3/uL Nucleated RBC % (auto) (0.0-0.2) /100WBC Hold Blue Top VBG pH 7.45 H (7.32-7.43) VBG pCO2 46 mmHg VBG pO2 51 mmHg VBG HCO3 32 H (22-26) mmol/L VBG O2 Saturation 76.0 % VBG Base Excess 7.3 mmol/L Sodium (135-145) mmol/L Potassium (3.3-5.1) mmol/L Chloride (96-108) mmol/L Carbon Dioxide (22-29) mmol/L Anion Gap (12-20) BUN (9-16) mg/dL Creatinine (0.5-1.4) mg/dL Estim Creat Clear Calc Estimated GFR Random Glucose (60-115) mg/dL Calcium (8.4-10.2) mg/dL Magnesium (1.6-2.6) mg/dL Total Bilirubin (0.0-1.0) mg/dL AST (5-37) U/L ALT (0-40) U/L Alkaline Phosphatase (39-117) U/L Total Protein (6.5-8.0) g/dL Albumin (3.5-5.0) g/dL Lipase (8-78) U/L Urine Color Urine Appearance Urine pH (5.0-8.0) Ur Specific [place] (1.005-1.025) Urine Protein (NEG-TRACE) MG/DL Urine Glucose (UA) (NEG) MG/DL Urine Ketones (NEG) MG/DL Urine Blood (NEG) Urine Nitrite (NEG) Ur Leukocyte Esterase (NEG) Urine RBC (0) /HPF Urine WBC (0-4) /HPF Urine WBC Clumps Ur Squamous Epith Cells /LPF Amorphous Sediment /LPF Urine Bacteria /LPF Hyaline Casts /LPF Urine Mucus /LPF Stool Occult Blood (NEGATIVE) Ethyl Alcohol mg/dL Blood Type O Positive Antibody Screen NEGATIVE 09/03/20 Range/Units 02:32 WBC (4.8-10.8) X10*3/uL RBC (4.60-5.80) X10*6/uL Hgb (14.0-18.0) g/dl Hct (42-52) % MCV (80-98) fL MCH (27.0-33.0) pg MCHC (31.0-36.0) g/dl RDW (11.0-16.0) % Plt Count (160-400) X10*3/uL MPV (9.4-12.4) fL Immature Gran % (Auto) (0.0-0.4) % Neut % (Auto) (45-73) % Lymph % (Auto) (20-40) % [place] % (Auto) (2-11) % Eos % (Auto) (0-4) % Baso % (Auto) (0-2) % Lymph # (Auto) (1.2-4.9) X10*3/uL [place] # (Auto) (0.1-1.2) X10*3/uL Eos # (Auto) (0.0-0.4) X10*3/uL Baso # (Auto) (0.0-0.2) X10*3/uL Abs Immat Gran (auto) (0.00-0.03) X10*3/uL Absolute Neuts (auto) (2.0-8.3) X10*3/uL Absolute Nucleated RBC (0.0-0.012) X10*3/uL Nucleated RBC % (auto) (0.0-0.2) /100WBC Hold Blue Top VBG pH (7.32-7.43) VBG pCO2 mmHg VBG pO2 mmHg VBG HCO3 (22-26) mmol/L VBG O2 Saturation % VBG Base Excess mmol/L Sodium (135-145) mmol/L Potassium (3.3-5.1) mmol/L Chloride (96-108) mmol/L Carbon Dioxide (22-29) mmol/L Anion Gap (12-20) BUN (9-16) mg/dL Creatinine (0.5-1.4) mg/dL Estim Creat Clear Calc Estimated GFR Random Glucose (60-115) mg/dL Calcium (8.4-10.2) mg/dL Magnesium (1.6-2.6) mg/dL Total Bilirubin (0.0-1.0) mg/dL AST (5-37) U/L ALT (0-40) U/L Alkaline Phosphatase (39-117) U/L Total Protein (6.5-8.0) g/dL Albumin (3.5-5.0) g/dL Lipase (8-78) U/L Urine Color YELLOW Urine Appearance CLEAR Urine pH 7.0 (5.0-8.0) Ur Specific [place] 1.010 (1.005-1.025) Urine Protein 1+ H (NEG-TRACE) MG/DL Urine Glucose (UA) NEG (NEG) MG/DL Urine Ketones 15 (NEG) MG/DL Urine Blood NEG (NEG) Urine Nitrite POS H (NEG) Ur Leukocyte Esterase NEG (NEG) Urine RBC 0-2 (0) /HPF Urine WBC 5-9 H (0-4) /HPF Urine WBC Clumps NOTED Ur Squamous Epith Cells TRACE /LPF Amorphous Sediment 1+ /LPF Urine Bacteria TRACE /LPF Hyaline Casts 0-2 /LPF Urine Mucus TRACE /LPF Stool Occult Blood (NEGATIVE) Ethyl Alcohol mg/dL Blood Type Antibody Screen Discharge Plan Discharge Clinical Impression: AA (alcohol abuse) Vomiting Qualifiers: Vomiting type: unspecified Vomiting Intractability: non-intractable Nausea presence: with nausea Qualified Code(s): R11.2 - Nausea with vomiting, unspecified Gastritis Qualifiers: Gastritis type: alcoholic Chronicity: acute Gastritis bleeding: with bleeding Qualified Code(s): K29.21 - Alcoholic gastritis with bleeding Patient Disposition: Home, Self-Care Instructions: Gastritis (ED), Abuse of Alcohol (ED), Acute Nausea and Vomiting (ED) Additional Instructions: return to ED for any worsening symptoms or concerns omeprazole 20mg twice a day Prescriptions: New chlordiazepoxide HCl 25 mg capsule See Rx Instructions .ROUTE .COMPLEX PRN (Reason: alcohol withdrawal) Qty: 30 RF: 0 ondansetron 4 mg tablet,disintegrating 4 mg PO Q8H PRN (Reason: nausea and vomiting) Qty: 20 RF: 0 No Action chlorthalidone 25 mg tablet 25 mg PO DAILY 30 Days Qty: 30 RF: 3 trazodone 100 mg tablet 100 mg PO BEDTIME Qty: 30 RF: 2 clonazepam 1 mg tablet 1 mg PO BID PRN (Reason: anxiety) 30 Days Qty: 60 RF: 0 omeprazole 40 mg capsule,delayed release(DR/EC) 40 mg PO DAILY 30 Days Qty: 30 RF: 3 ondansetron 4 mg tablet,disintegrating 4 mg PO Q8H PRN (Reason: nausea and vomiting) Qty: 20 RF: 0 chlordiazepoxide HCl 25 mg capsule 25 mg PO Q8H PRN (Reason: alcohol withdrawal) Qty: 14 RF: 0 ondansetron HCl [Zofran] 4 mg tablet 4 mg PO Q8H PRN (Reason: nausea and vomiting) Qty: 10 RF: 0 ondansetron 4 mg tablet,disintegrating 4 mg PO Q8H PRN (Reason: nausea and vomiting) 5 Days Qty: 14 RF: 0 chlordiazepoxide HCl 25 mg capsule 25 mg PO TID Qty: 15 RF: 0 escitalopram oxalate 10 mg tablet 10 mg PO DAILY 90 Days Qty: 90 RF: 2 Referrals: Willie Pollard, [facility] [Primary Care Provider] - 2 days
[2020-09-03 00:36] LABS: Magnesium 1.7 mg/dL (1.6-2.6)
[2020-09-03 00:47] VITALS: BP 137/79; PULSE 78; RESP 16; TEMP 37.1; O2SAT 97
[2020-09-03 00:53] LABS: OBS Int Ctl Valid YES; OBS1 NEGATIVE (NEGATIVE)
[2020-09-03 00:53] LABS: VBG Base Excess 7.3 mmol/L; VBG HCO3 32 mmol/L (22-26); VBG pCO2 46 mmHg; VBG pH 7.45 (7.32-7.43); VBG pO2 51 mmHg
[2020-09-03 00:53] LABS: Venous Blood Gas Refer to POC result
[2020-09-03] MEDS: LORazepam 2 MG/ML VIAL IVPUSH (00:56)
[2020-09-03] MEDS: ondansetron HCL 4 MG/2 ML VIAL IVPUSH (00:57)
[2020-09-03] MEDS: Pantoprazole Sodium 40 MG/10 ML VIAL IVPUSH (01:01)
[2020-09-03 01:14] LABS: Ethanol 360 mg/dL
[2020-09-03] MEDS: Thiamine HCL 200 MG/2 ML VIAL 100 MG IVPUSH (01:29)
[2020-09-03] MEDS: iohexoL 350 MG/ML 100 ML INFUS..BTL 85 ML IV (01:30)
[2020-09-03] MEDS: 0.9 % Sodium Chloride 1,000 ML 999 ML IVCONT (01:34)
[2020-09-03 01:54] LABS: Hemoglobin 13.2 g/dl (14.0-18.0)
[2020-09-03] MEDS: chlordiazePOXIDE HCl 25 MG CAPSULE 50 MG PO (02:25)
[2020-09-03 02:39] LABS: Glucose Urine UA NEG (NEG); Leukocyte Esterase Urine NEG (NEG); Nitrite Urine POS (NEG); UACC Culture Trigger YES; Urine Blood NEG (NEG); Urine Ketones 15 MG/DL (NEG); Urine Protein 1+ MG/DL (NEG-TRACE)
[2020-09-03 02:53] LABS: Appearance Urine CLEAR; Color Urine YELLOW
[2020-09-03 03:02] LABS: RBC Urine 0-2 /HPF (0); Squamous Epithelial Cell Urine TRACE /LPF
[2020-09-03 03:03] LABS: Amorphous Sediment Urine 1+ /LPF; Bacteria Urine TRACE /LPF; Hyaline Casts Urine 0-2 /LPF; Mucus Urine TRACE /LPF; WBC Clumps Urine NOTED
[2020-09-03 05:01] VITALS: RESP 16
== END 2020-09-03 06:00 | disposition home or self-care (01) ==
PROVIDERS: Emergency Provider Emergency Medicine; PCP Nurse Practitioner Family
DX: K29.21 Alcoholic gastritis with bleeding (principal); F10.129 Alcohol abuse with intoxication, unspecified; Y90.8 Blood alcohol level of 240 mg/100 ml or more; R10.13 Epigastric pain; R11.2 Nausea with vomiting, unspecified; Z79.899 Other long term (current) drug therapy
CPT/HCPCS: 36415; 74177; 80053; 80320; 81001; 81003; 82272; 83690; 83735; 85018; 85025; 86850; 86900; 86901; 87086; 87088; 87186; 96365; 96375; 99284; J2060; J2405; J3411; Q9967